=== PATIENT | male | born 1950 | race Caucasian/White ===

== ENCOUNTER 2017-09-27 09:55 | Outpatient (CLI) | payer MEDICARE, OTHER | END 2017-09-27 10:35 | disposition home or self-care (01) | LOC: SLEEP 09:55 → EDSEX 10:00 → SLEEP 10:35 | PROVIDERS: ATTEND Nurse Practitioner Family | DX: G47.10 Hypersomnia, unspecified (principal) ==

== ENCOUNTER 2019-03-17 05:55 | Outpatient (CLI) | payer OTHER, MEDICARE ==
[~2019-03-17] VITALS: Ht 170.2 cm; Wt 70.8 kg
[2019-03-17] MEDS ORDERED: bp med PO (11:09)
[2019-03-17] MEDS ORDERED: LEVO88TA54 PO (11:09)
== END 2019-03-17 11:10 | disposition home or self-care (01) ==
LOC: PREOP 05:55
PROVIDERS: ATTEND Surgery
DX: Z01.818 Encounter for other preprocedural examination (principal)

== ENCOUNTER 2019-03-19 10:17 | Day surgery (SDC) | payer OTHER, MEDICARE ==
[~2019-03-19] VITALS: Ht 170.2 cm; Wt 70.8 kg
[~2019-03-19 10:17] MED LIST: LEVO88TA54 PO; bp med PO
[2019-03-19] MEDS ORDERED: NS IV 500 ML 500 ML ONE (10:26)
[2019-03-19 10:30] VITALS: BP 151/97
--- OUTSIDE RECORDS SUMMARY | 2019-03-19 10:34 | XMS REPORT | Continuity of Care Document ---
Author Organization Unknown Address Unknown Allergies Active Description Code Type Severity Reaction Onset Reported/Identified Relationship to Patient Clinical Status Yes No Known Drug Allergies [id number] Drug Allergy Unknown N/A 03/17/2019 Medications There is no data. Problems Date Dx Coded Attending Type Code Diagnosis Diagnosed By 05/19/2014 GISELLE GERARD APRN 692.9 CONTACT DERMATITIS AND OTHER ECZEMA UNSPECIFIED CAUSE 05/19/2014 GISELLE GERARD APRN 698.9 UNSPECIFIED PRURITIC DISORDER 05/19/2014 KRISSY REBOLLEDO DO 692.9 CONTACT DERMATITIS AND OTHER ECZEMA UNSPECIFIED CAUSE 05/19/2014 KRISSY REBOLLEDO DO 698.9 UNSPECIFIED PRURITIC DISORDER 06/01/2014 KRISSY REBOLLEDO DO 692.2 CONTACT DERMATITIS AND OTHER ECZEMA DUE TO SOLVENTS 09/27/2017 MICHAELA ROSADO [facility] Ot G47.10 HYPERSOMNIA, UNSPECIFIED 09/28/2017 MICHAELA ROSADO Ot G47.10 HYPERSOMNIA, UNSPECIFIED 10/22/2018 Medhat Trimble Reason R42 Dizziness and giddiness Procedures Code [place] [address] THERAPUTIC INJ SQ/IM 06/01/2014 [id number] SOLUMEDROL INJ 06/01/2014 Results There is no data. Encounters ACCT No. Visit Date/Time Discharge Status Pt. Type Provider Facility Loc./Unit Complaint [id number] 06/01/2014 17:21:00 06/01/2014 23:59:59 CLS Outpatient KRISSY REBOLLEDO DO [id number] 05/19/2014 11:07:00 05/19/2014 23:59:59 CLS Outpatient GISELLE GERARD APRN [id number] 03/17/2019 05:55:00 03/17/2019 11:10:00 DIS Outpatient LYNDSEY STREETER MD [facility] PREOP COLONOSCOPY [id number] 09/27/2017 09:55:00 09/27/2017 10:35:00 DIS Outpatient MICHAELA ROSADO [facility] SLEEP OBSTRUCTIVE SLEEP APNEA [id number] 03/19/2019 11:45:00 PEN Preadmit LYNDSEY STREETER MD [facility] ENDO SCREENING/HX POLYPS [id number] 10/21/2018 06:53:00 10/21/2018 23:59:00 DIS Outpatient Medhat Trimble [facility] Dizziness and giddiness/
[2019-03-19] MEDS ORDERED: NS IV 500 ML 500 ML IV PRN (10:36)
--- NOTE | 2019-03-19 10:42 | Progress Note-Pre Operative ---
Pre-Operative Progress Note H&P Reviewed The H&P was reviewed, patient examined and no changes noted. Date Seen by Provider: Mar 19, 2019 Time Seen by Provider: 10:00 Date H&P Reviewed: Mar 19, 2019 Time H&P Reviewed: 10:00 Pre-Operative Diagnosis: hx colon polyp LYNDSEY STREETER MD Mar 19, 2019 10:42
--- NOTE | 2019-03-19 10:44 | Discharge Inst-Surgical ---
D/C Lap Instructions-FERDINAND Follow Up Activity as tolerated High Fiber Diet 25g or more per day Avoid Alcohol, Caffeine, Spicy [place] and Acid foods. Drink 64 fluid oz or more of fluids per day. Symptoms to Report: Fever over 101 degree F, Nausea/Vomiting If any problems/questions: Contact your physician or go to Emergency Room LYNDSEY STREETER MD Mar 19, 2019 10:44
[2019-03-19] MEDS ORDERED: fentaNYL INJECTION 100 MCG/2 ML AMP IVP ONE (10:45)
[2019-03-19] MEDS ORDERED: LIDOCAINE JELLY 2% 6 ML SYRINGE MM PRN (10:45)
[2019-03-19] MEDS ORDERED: ONDANSETRON 4 MG/2 ML (SDV) Z0FRAN IV PRN (10:45)
[2019-03-19] MEDS ORDERED: ACETAMINOPHEN 325 MG TABLET PO PRN (10:45)
[2019-03-19] MEDS ORDERED: morphine INJ 10 MG/ML 1ML (SYR OR VIAL) IV PRN (10:45)
[2019-03-19] MEDS ORDERED: HYDROcodone/APAP 5 MG/325 MG (LORTAB) TAB PO PRN (10:45)
[2019-03-19] MEDS ORDERED: MIDAZOLAM 2 MG/2 ML (VERSED) VIAL IVP ONE (10:45)
[2019-03-19] MEDS ORDERED: HYDR25TA4 PO (10:59)
[2019-03-19] MEDS ORDERED: SIMV40TA4 PO (10:59)
[2019-03-19] MEDS ORDERED: LISI40TA PO (10:59)
[2019-03-19] MEDS ORDERED: NIFE100P MC (10:59)
--- NOTE | 2019-03-19 12:05 | Conscious Sedation/ASA ---
Conscious Sedation Pre-Proced Time 10:00 ASA Score 2 For ASA 3 and 4: Consider anesthesia and medical clearance. Also, for patients with a history of failed moderate sedation consider anesthesia. Airway Lungs Heart ASA score ASA 1: a normal healthy patient ASA 2: a patient with a mild systemic disease (mid diabetes, controlled hypertension, obesity ASA 3: a patient with a severe systemic disease that limits activity (angina , COPD, prior Myocardial infarction) ASA 4: a patient with an incapacitating disease that is a constant threat to life (CHF, renal failure) ASA 5: a moribund patient not expected to survive 24 hrs. (ruptured aneurysm) ASA 6: a declared brain- patient whose organs are being harvested. For emergent operations, add the letter E after the classification Mallampati Classification Grade 2 Sedation Plan Analgesia, Amnesia, Plan communicated to team members, Discussed options with patient/fam, Discussed risks with patient/fam The patient is an appropriate candidate to undergo the planned procedure, sedation, and anesthesia. The patient immediately re-assessed prior to indication. LYNDSEY STREETER MD Mar 19, 2019 12:05
[2019-03-19] MEDS ORDERED: fentaNYL INJECTION 100 MCG/2 ML AMP ONE ×2 (12:48→12:49)
[2019-03-19] MEDS ORDERED: LIDOCAINE JELLY 2% 6 ML SYRINGE ONE (12:48)
[2019-03-19] MEDS ORDERED: MIDAZOLAM 2 MG/2 ML (VERSED) VIAL ONE ×3 (12:49)
[2019-03-19 14:10] VITALS: BP 112/71
--- NOTE | 2019-03-19 14:31 | Progress Note-Post Operative ---
Post-Operative Progess Note Surgeon (s)/Qa Architect (s) Surgeon LYNDSEY STREETER MD Qa Architect: none Pre-Operative Diagnosis hx colon polyp Post-Operative Diagnosis mild chronic stage 2 ext and int hemorrhoids, mild/early sigmoid diverticulosis. Procedure & Operative Findings Date of Procedure 03/19/19 Procedure Performed/Findings colonoscopy Anesthesia Type cs Estimated Blood Loss Estimated blood loss (mL): minimal Specimens/Packing Specimens Removed none LYNDSEY STREETER MD Mar 19, 2019 14:31
[2019-03-19 14:40] VITALS: BP 132/82
[2019-03-19 14:50] VITALS: BP 132/82
--- NOTE | 2019-03-19 21:13 | OPERATIVE REPORT ---
DATE OF SERVICE: 03/19/2019 ATTENDING IN SCHOOL SUSPENSION AIDE: Medhat Trimble APRN PREOPERATIVE DIAGNOSIS: History of colon polyp. POSTOPERATIVE DIAGNOSES: Mild chronic stage II external and internal hemorrhoids, very mild or early sigmoid diverticulosis. PROCEDURE: Colonoscopy. SURGEON: Lyndsey Streeter MD ANESTHESIA: Conscious sedation. ESTIMATED BLOOD LOSS: Minimal. FINDINGS: Mild chronic stage I external and internal hemorrhoids. Prostate gland was palpable and appeared normal. There were a few isolated small early sigmoid diverticulosis. Remainder of the colon was normal. There were no polyps or any neoplasms identified. DISPOSITION: The patient tolerated the procedure well. INDICATIONS: The patient is a 68-year-old male in need of a followup colonoscopy. His last colonoscopy was approximately 8 years ago and he states that he did have polyps at that time. He reports that the previous colonoscopy before that when he also had polyps. He believes all of these were benign. He states for the most part he is doing well, does not report any diarrhea nor constipation as well as no red blood per rectum nor any dark tarry stools. He also does not report any family history of colon cancer. DESCRIPTION OF PROCEDURE: The patient was brought to the endoscopy suite, laid in left lateral decubitus position. After adequate IV pain and sedative medications and conscious sedation anesthesia, a digital rectal examination was performed. Mild chronic stage II external and internal hemorrhoids were identified, which were not actually edematous nor inflamed and no bleeding. Normal sphincter tone was felt and no palpable masses. Prostate gland was palpable and appeared normal. The endoscope was then intubated into anus and rectum gently insufflated. The endoscope was then advanced to the valves of Weiss of the rectum with no polyps or any neoplasms identified. The endoscope was then advanced through the sigmoid colon where a few isolated very early or mild diverticula identified. There were no mucosal inflammatory changes to indicate any active diverticulitis. The endoscope was then advanced to remainder of the descending, transverse and ascending colon to the cecum. These segments were normal. There were no polyps or any neoplasms identified throughout the colon or rectum. The endoscope was then slowly withdrawn while taking a second look and suctioning of residual air with no additional findings. The patient tolerated the procedure well. We will recommend medical management with a high fiber diet with at least 30 grams of fiber per day as well as significant amounts of water daily to promote soft stools on a daily basis. He does not have any family history of colon cancer and no polyps were identified, and he may wait 10 years for his next colonoscopy. Job ID: [id number] DocumentID: [id number] Dictated Date: 03/19/2019 13:40:17 Architect Marine Date: 03/19/2019 21:12:38 Dictated By: LYNDSEY STREETER MD
== END 2019-03-19 14:50 | disposition home or self-care (01) ==
LOC: ENDO 10:17
PROVIDERS: ATTEND Surgery
DX: Z12.11 Encounter for screening for malignant neoplasm of colon (principal); K57.30 Diverticulosis of large intestine without perforation or abscess without bleeding; K64.1 Second degree hemorrhoids; Z86.010 Personal history of colon polyps; I10 Essential (primary) hypertension; E78.00 Pure hypercholesterolemia, unspecified; E03.9 Hypothyroidism, unspecified; Z79.899 Other long term (current) drug therapy; Z87.891 Personal history of nicotine dependence

== ENCOUNTER 2022-09-05 03:09 | Inpatient (IN) | payer OTHER, MEDICARE ==
[~2022-09-05] VITALS: Ht 182.9 cm; Wt 58.6 kg
[~2022-09-05 03:09] MED LIST changes: +HYDR25TA4 PO; +LISI40TA9 PO; +NIFE100P MC; +SIMV40TA25 PO
[2022-09-05] MEDS ORDERED: TETANUS,DIPTH,PERTUSS P/F (BOOSTRIX) 0.5 ML VIAL IM ONE (03:30)
[2022-09-05] MEDS ORDERED: LACTATED RINGERS 1,000 ML IV ONE ×3 (03:30→07:00)
[2022-09-05 03:46] LABS: CHLORIDE 104 MMOL/L (98-107); POTASSIUM 3.9 MMOL/L (3.6-5.0); SODIUM 139 MMOL/L (135-145)
[2022-09-05 03:47] LABS: ALBUMIN 4.2 GM/DL (3.2-4.5)
[2022-09-05 03:48] LABS: CALCIUM 9.1 MG/DL (8.5-10.1)
[2022-09-05 03:49] LABS: AMMONIA 15 UMOL/L (11-32); AMYLASE 46 U/L (25-125); GLUCOSE 134 MG/DL (70-105); TOTAL PROTEIN 6.3 GM/DL (6.4-8.2)
[2022-09-05 03:50] LABS: CARBON DIOXIDE 20 MMOL/L (21-32)
[2022-09-05 03:51] LABS: BILIRUBIN,TOTAL 0.6 MG/DL (0.1-1.0)
[2022-09-05 03:53] LABS: ALKALINE PHOSPHATASE 36 U/L (40-136); CREATININE SERUM 1.74 MG/DL (0.60-1.30); GFR ESTIMATED 42
[2022-09-05 03:54] LABS: BUN/CREATININE RATIO 24
[2022-09-05 03:56] LABS: ALANINE AMINOTRANSFERASE < 6 U/L (0-55); MAGNESIUM 2.2 MG/DL (1.6-2.4); SALICYLATE < 5.0 MG/DL (5.0-20.0)
[2022-09-05 03:57] LABS: CREATINE KINASE 158 U/L (30-200); LIPASE 26 U/L (8-78)
[2022-09-05 04:02] LABS: ACETAMINOPHEN < 10 UG/ML (10-30)
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
[2022-09-05 04:05] LABS: CREATINE KINASE MB 5.3 NG/ML (<6.6)
[2022-09-05 04:18] LABS: TSH (THYROID ANALYZER) 1.62 UIU/ML (0.35-4.94)
[2022-09-05 04:58] LABS: BASOPHILS % (AUTO) 0 % (0-10); EOSINOPHILS # (AUTO) 0.1 10^3/uL (0.0-0.3); EOSINOPHILS % (AUTO) 1 % (0-10); HEMATOCRIT 38 % (40-54); HEMOGLOBIN 12.8 g/dL (13.3-17.7); LYMPHOCYTES # (AUTO) 0.8 10^3/uL (1.0-4.0); LYMPHOCYTES % (AUTO) 7 % (12-44); MEAN CORPUSCULAR HEMOGLOBIN 32 pg (25-34); MEAN CORPUSCULAR HGB CONC 34 g/dL (32-36); MEAN CORPUSCULAR VOLUME 93 fL (80-99); MEAN PLATELET VOLUME 10.7 fL (9.0-12.2); MONOCYTES # (AUTO) 0.6 10^3/uL (0.0-1.0); MONOCYTES % (AUTO) 6 % (0-12); NEUTROPHILS # (AUTO) 8.6 10^3/uL (1.8-7.8); NEUTROPHILS % (AUTO) 85 % (42-75); PLATELET COUNT 155 10^3/uL (130-400); WHITE BLOOD COUNT 10.1 10^3/uL (4.3-11.0)
[2022-09-05 04:59] LABS: BILIRUBIN,URINE NEGATIVE (NEGATIVE); CLARITY,URINE CLEAR; COLOR,URINE YELLOW; GLUCOSE, URINE (UA) NEGATIVE (NEGATIVE); KETONES,URINE 1+ (NEGATIVE); LEUKOCYTE ESTERASE ,URINE NEGATIVE (NEGATIVE); NITRITE,URINE NEGATIVE (NEGATIVE); PH,URINE 5.5 (5-9); PROTEIN,URINE NEGATIVE (NEGATIVE)
[2022-09-05 05:13] LABS: INR 1.1 (0.8-1.4); PROTHROMBIN TIME PATIENT 15.1 SEC (12.2-14.7)
[2022-09-05 05:17] LABS: AMPHETAMINE SCREEN, URINE NEGATIVE (NEGATIVE); BARBITURATE SCREEN URINE NEGATIVE (NEGATIVE); BENZODIAZEPINES SCREEN URINE NEGATIVE (NEGATIVE); CANNABINOID SCREEN, URINE NEGATIVE (NEGATIVE); COCAINE SCREEN URINE NEGATIVE (NEGATIVE); METHADONE STAT NEGATIVE (NEGATIVE); OPIATE SCREEN URINE NEGATIVE (NEGATIVE); OXYCODONE STAT NEGATIVE (NEGATIVE); PROPOXYPHENE STAT NEGATIVE (NEGATIVE); TRICYCLIC ANTIDEPRESSANTS SCRE NEGATIVE (NEGATIVE)
[2022-09-05 05:24] LABS: BACTERIA,URINE TRACE /HPF; WBC,URINE 0-2 /HPF
[2022-09-05 05:25] LABS: URIC ACID CRYSTALS,URINE MODERATE /LPF
[2022-09-05 05:30] LABS: ERYTHROCYTE SEDIMENTATION RATE 3 MM/HR (0-30)
[2022-09-05 05:58] LABS: NEUTROPHILS % (MANUAL) 91 %
[2022-09-05 05:59] LABS: EOSINOPHILS % (MANUAL) 1 %; LYMPHOCYTES % (MANUAL) 3 %; MONOCYTES % (MANUAL) 5 %; RBC MORPH NORMAL
[2022-09-05] MEDS ORDERED: CEFEPIME INJECTION 1,000 MG in NS (IVPB) 50 ML IV ONE (06:00)
--- NOTE | 2022-09-05 06:48 | Diagnostic Imaging Report ---
Procedure: CT chest, abdomen, and pelvis without contrast. Technique: Multiple contiguous axial images were obtained through the chest, abdomen, and pelvis without the use of intravenous contrast. Auto Exposure Controls were utilized during the CT exam to meet ALARA standards for radiation dose reduction. Date: September 05, 2022. Indication: 71-year-old male, found down. Chest and abdominal pain. Comparison: None. Findings: There is mild dependent atelectasis in the right lower lobe and left lower lobe. There is no additional focal airspace consolidation. There is no identified pulmonary nodule or lung mass. There is no pneumothorax. There is no pleural effusion. The central airways are patent. The heart is unremarkable in size. There is no pericardial effusion. There is no identified abnormally enlarged mediastinal or axillary lymph node which meets CT size criteria for adenopathy. The liver is unremarkable in size and contour. The gallbladder is unremarkable. There is no identified biliary duct dilation. Very limited noncontrast assessment of the pancreatic parenchyma is without identified abnormality. The spleen is normal in size. The adrenal glands are unremarkable. There is a hyperdense right renal lesion on axial image 148 measuring 9 mm in size which is not able to be definitively characterized. There are areas of right renal scarring particularly at the level of the upper pole. The urinary collecting systems are not distended. There is no identified renal or ureteral stone. Urinary bladder is unremarkable. The intestinal tract is not distended. There is a moderate volume colonic stool. The appendix is not well seen. There is no identified secondary findings to specifically suggest acute appendicitis. There is no identified free intraperitoneal air. There is no identified focal drainable fluid collection. There is no sizable volume free fluid in the abdomen or pelvis. There are atherosclerotic calcifications. There is no identified abnormally enlarged lymph node in the abdomen or pelvis meeting CT size criteria for adenopathy. There are degenerative changes of the spine. There is no identified acute bony abnormality. Impression: 1. No identified acute abnormality at the level of the chest, abdomen, or pelvis. 2. Incidental findings as above. Agree with the provided preliminary impression Dictated by: Dictated on workstation # [id number]
--- NOTE | 2022-09-05 06:58 | Diagnostic Imaging Report ---
EXAMINATION: Right humerus radiographs, 2 views. COMPARISON: None. HISTORY: 71-year-old male, right humerus pain. FINDINGS: There are punctate areas of high attenuation in the soft tissues anterior and lateral at the level of the elbow which could relate to foreign bodies. Recommend correlation. There is no identified acute fracture. There are acromioclavicular degenerative changes with 4 mm undersurface osteophytes. IMPRESSION: 1. No identified acute bony abnormality at the level of the right humerus. 2. Potential foreign bodies laterally and anteriorly near the level of the elbow joint. Recommend correlation. Dictated by: Dictated on workstation # [id number]
--- NOTE | 2022-09-05 06:58 | Diagnostic Imaging Report ---
EXAMINATION: Right forearm radiographs, 2 views. COMPARISON: None. HISTORY: 71-year-old male, right forearm pain. FINDINGS: There is no identified acute fracture. There are areas of high attenuation projecting within the lateral and anterior soft tissues near the level of the elbow joint which may reflect foreign bodies. These measure up to approximately 1.2 mm in size. Recommend correlation. There is no identified abnormal bone alignment. IMPRESSION: 1. Potential small radiopaque foreign bodies within the lateral and anterior soft tissues at the level of the elbow. Recommend correlation. 2. No identified acute fracture or other acute osseous abnormality. Dictated by: Dictated on workstation # [id number]
--- NOTE | 2022-09-05 07:01 | Diagnostic Imaging Report ---
EXAMINATION: Chest radiograph, portable AP view. DATE: 09/05/2022 5:01 AM INDICATION: 71-year-old male, found down. Chest pain. COMPARISON: None. FINDINGS: Heart size and mediastinal contours are unremarkable. There is no identified pneumothorax. There is no large pleural effusion. There is material external to the patient which does limit the exam. There is no identified focal airspace consolidation. IMPRESSION: 1. No identified acute cardiopulmonary abnormality. Dictated by: Dictated on workstation # [id number]
--- NOTE | 2022-09-05 07:02 | Diagnostic Imaging Report ---
EXAMINATION: Pelvis, single view. COMPARISON: None. HISTORY: 71-year-old male, found down. Pelvic pain. FINDINGS: The pubic symphysis and sacroiliac joints are normally aligned. The hips are not obviously dislocated. There is material overlying the patient which does limit the exam. There is no identified acute fracture. IMPRESSION: 1. No identified acute bony abnormality of the pelvis. Dictated by: Dictated on workstation # [id number]
[2022-09-05] MEDS ORDERED: LIDOCAINE 1% INJ 20 ML VIAL INJ ONE (07:30)
--- NOTE | 2022-09-05 08:28 | Diagnostic Imaging Report ---
PROCEDURE: CT head, face, and cervical spine without contrast. TECHNIQUE: Multiple contiguous axial images were obtained through the head, neck, and facial bones without the use of intravenous contrast. Sagittal and coronal reformations through the cervical spine and facial bones were also performed. Auto Exposure Controls were utilized during the CT exam to meet ALARA standards for radiation dose reduction. INDICATION: Facial abrasions and soft tissue injuries, found down. This is compared with a head CT dated 10/21/2018. CT Head: There is increased magnitude of cerebral cortical atrophy. There is no hemorrhage and there are no abnormal or acute extra-axial fluid collections. There is no pneumocephalus. No calvarial fracture deformity. The mastoid air cells and middle ear cavities clear. There was no evidence for an elevation of the intracerebral pressures and no focal nor generalized cerebral edema. Facial bones: There are acute bilateral nasal bone fractures extending into the bridge. Rightward nasal septal deviation and spurring chronic. Pterygoid plates intact. Zygomatic arch is intact. There is periorbital, perinasal and preseptal soft tissue swelling. No post septal or retrobulbar orbital hematoma. The bony orbital mclean appeared intact. Maxillary sinus mclean intact. There are degenerative changes to the right greater than left temporomandibular joints with no mandibular fracture or dislocation evident. Anterior and posterior mclean of the frontal sinus is intact. Cervical spine: Cervical vertebral statures normal the alignment within normal limits there degenerative changes however no cervical fracture or traumatic malalignment. The central skull base intact. No paraspinal hematoma, mass or fluid collection. There is carotid atherosclerotic vascular calcifications. Hyoid and structures of the larynx as well as thyroid cartilage showed no traumatic deformity. IMPRESSION: CT Head: Progressive atrophy but no hemorrhage or acute intracerebral pathology. Facial bones: Bilateral acute nasal bone fractures and facial swelling. No hemosinus. No additional fracture. Cervical spine: No cervical spinal fracture or traumatic malalignment. Agree with preliminary. Dictated by: Dictated on workstation # [id number]
[2022-09-05] MEDS ORDERED: OLANZapine 5 MG ODT (ZyPREXA ZYDIS) ONE (08:38)
[2022-09-05] MEDS ORDERED: ZIPRASIDONE 20 MG INJ (GEODON) VIAL IM ONE ×3 (08:40→23:51)
[2022-09-05] MEDS ORDERED: WATER (STERILE) FOR INJECTION 10 ML ONE (08:40)
[2022-09-05] MEDS: WATER (STERILE) FOR INJ 10 ML BTL INJ SCH ×2 (08:45→23:58)
[2022-09-05] MEDS ORDERED: ONDANSETRON 4 MG/2 ML (SDV) Z0FRAN IV PRN (09:30)
[2022-09-05] MEDS ORDERED: NS IV 500 ML 500 ML IV PRN (09:30)
[2022-09-05] MEDS ORDERED: diphenhydrAMINE 50 MG/ML INJ (BENADRYL) IVP PRN (09:30)
[2022-09-05] MEDS ORDERED: ONDANSETRON 4 MG (ZOFRAN) ORAL DISSOLVE TAB PO PRN (09:30)
[2022-09-05] MEDS ORDERED: ANTACID SUSP 30 ML UDC (MYLANTA) PO PRN (09:30)
[2022-09-05] MEDS ORDERED: diphenhydrAMINE 25 MG TAB (BENADRYL) PO PRN (09:30)
[2022-09-05] MEDS ORDERED: BISACODYL 10 MG SUPP (DULCOLAX) PR PRN (09:30)
[2022-09-05] MEDS ORDERED: CALCIUM CARBONATE 500 MG (TUMS) TAB.CHEW PO PRN (09:30)
[2022-09-05] MEDS ORDERED: LACTULOSE SYRUP 10GM/15ML (ENULOSE) 30ML UDC PO PRN (09:30)
[2022-09-05] MEDS ORDERED: polyethylene glycoL POWDER 17 GM (MIRALAX) PACK PO PRN ×2 (09:30→15:45)
[2022-09-05] MEDS ORDERED: MILK OF MAGNESIA 400 MG/5 ML 30 ML UDC PO PRN (09:30)
[2022-09-05 09:50] VITALS: BP 148/84
[2022-09-05] MEDS: NS IV 1000 ML 1,000 ML IV SCH ×2 (11:04→20:02)
[2022-09-05 11:38] VITALS: BP 172/99
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
[2022-09-05] MEDS: ACETAMINOPHEN 325 MG TABLET PO PRN (12:11)
--- NOTE | 2022-09-05 13:49 | Occ Therapy Progress Note ---
Therapy Progress Note OT orders received and chart reviewed. OT attempted visit with pt, but pt sleeping. OT talked with pt's brother, who indicates pt lives alone, but has a family member check on him 2-4 times a day and assistance with medication management. He is able to dress, toilet, and bathe himself at PLOF. Pt's brother requests to let pt rest today and attempt again tomorrow. OT will attempt evaluation again at next available time per family request. 1, visit SLIM GALLEGOS OT Sep 05, 2022 13:49
[2022-09-05] MEDS ORDERED: HYDR25TA4 PO (14:01)
[2022-09-05] MEDS ORDERED: LISI40TA9 PO (14:01)
[2022-09-05] MEDS ORDERED: POLY17PO6 PO (14:01)
[2022-09-05] MEDS ORDERED: NFD60TCR PO (14:01)
[2022-09-05] MEDS ORDERED: PSYL3.4P5 PO (14:01)
[2022-09-05] MEDS ORDERED: SIMV40TA25 PO (14:01)
[2022-09-05] MEDS ORDERED: RISP0.5T65 PO (14:01)
[2022-09-05] MEDS ORDERED: LEVO75TA6 PO (14:01)
[2022-09-05] MEDS ORDERED: CARB1TAB41 PO (14:01)
[2022-09-05 15:05] VITALS: BP 163/97
[2022-09-05] MEDS: hydrALAZINE (APESOLINE) 20 MG/ML VIAL IV PRN (15:44)
[2022-09-05] MEDS ORDERED: PSYLLIUM POWDER (METAMUCIL) 5.8 GM PACKET PO PRN (15:45)
[2022-09-05] MEDS: CARBIDOPA LEVO PO SCH ×3 (16:02→20:07)
[2022-09-05] MEDS ORDERED: ZIPRASIDONE 20 MG INJ (GEODON) VIAL IM NR (16:15)
[2022-09-05] MEDS ORDERED: WATER (STERILE) FOR INJ 10 ML BTL INJ NR (16:15)
[2022-09-05] MEDS ORDERED: CARBIDOPA PO SCH (17:00)
[2022-09-05] MEDS ORDERED: LEVODOPA PO SCH (17:00)
[2022-09-05] MEDS ORDERED: [UNRECOGNIZED DRUG - OTHER] PO SCH (17:00)
--- NOTE | 2022-09-05 18:54 | History & Physical-Hospitalist ---
History of Present Illness HPI/Chief Complaint Ranjith Swanson is a 71 year old male with PMH Parkinson's disease with dementia and psychosis, HTN, HLD, hypothyroidism, who presented after being found down. He is a poor historian due to his dementia. His brother is present and assists with the history He was found down on a sidewalk a couple miles from his home. He has several wounds on his face. He does not remember falling. He lives by himself. His sister helps with his bills and his medications. He has had several falls recently. He was also started on antipsychotics due to delusions, hallucinations, and agitation. He follows with a neurologist in [place], [place]. His PCP is through [facility] [place]. He denies chest pain, shortness of breath, and abdominal pain. Source: patient, family Exam Limitations: clinical condition Date Seen 09/05/22 Time Seen by a Provider: 11:00 Attending Physician No,Local Physician PCP Admitting Physician: Heike Ramirez MD Attending Physician: Heike Ramirez MD Referring Physician Date of Admission Sep 05, 2022 at 08:17 Home Medications & Allergies Home Medications Reviewed patient Home Medication Reconciliation performed by pharmacy medication reconciliations oil and gas field technician and/or nursing. Patients Allergies have been reviewed. Allergies Allergies Coded Allergies No Known Drug Allergies (Pmaigokobk63/11/22) Past Xmhukfp-Vayras-Gunbii Hx Patient Social History Tobacco Use?: No Tobacco type used: Cigarettes Smoking Status: Former Smoker Smokeless Tobacco Frequency: Never a User Use of E-Cig and/or Vaping Jacques: Never a User Substance use?: No Additional substance use comme: DENIES Alcohol Use?: No Additional alcohol type: DENIES Pt feels they are or have been: No Immunizations Up To Date Date of Influenza Vaccine: Aug 30, 2022 Tetanus Booster (TDap): Less Than 5 Years Hepatitis A: No Hepatitis B: No Seasonal Allergies Seasonal Allergies: Yes Current Status Advance Directives: No Communicates: Verbally Primary Language: Jordanian Preferred Spoken Language: Jordanian Is interpretation needed?: No Sensory deficits: Vision impairment Implanted or Applied Medical D: None Past Medical History Surgeries: Tonsillectomy High Cholesterol, Hypertension Parkinson's Disease Diverticulosis, Polyps Hypothyroidsim Loss of Vision: Denies Hearing Impairment: Denies Blood Disorders: No Family Medical History Heart Disease ([place] in father), Diabetes (father), Other Conditions/Hx (hypothyroidism in several relatives) SOCIAL HISTORY: -SMOKED 1 PPD X 5 YEARS, QUIT 1988 -DENIES HISTORY OF DRUG USE -HISTORY OF ETOH USE--UNKNOWN AMOUNT OR HOW OFTEN COLONOSCOPY 03/19/[address] STREETER: DONE FOR HISTORY OF POLYPS NO POLYPS OR NEOPLASMS MILD DIVERTICULAR DISEASE. Review of Systems Constitutional: weakness EENTM: no symptoms reported Respiratory: no symptoms reported Cardiovascular: no symptoms reported Gastrointestinal: no symptoms reported Physical Exam Physical Exam Vital Signs Vital Signs - First Documented 09/05/22 03:13 Temp 36.4 Pulse 91 Resp 16 B/P (MAP) 144/80 (101) Pulse Ox 98 O2 Delivery Room Air Capillary Refill : Less Than 3 Seconds Height, Weight, BMI Height: 5'7.00" Weight: 156lbs. 0.0oz. [id number]; 17.90 BMI Method: General Appearance: No Apparent Distress, Chronically ill, Thin HEENT: PERRL/EOMI, Pharynx Normal Neck: Normal Inspection, Supple Respiratory: Lungs Clear, No Respiratory Distress Cardiovascular: Regular Rate, Rhythm, No Murmur Gastrointestinal: Normal Bowel Sounds, Non Tender, Soft Extremity: Normal Inspection, No Pedal Edema Neurologic/Psychiatric: Alert, Disoriented, Other (flat affect) Skin: Other (facial lacerations) Results Results/Procedures Labs Laboratory Tests 09/05/22 03:27 09/05/22 04:51 Patient resulted labs reviewed. Imaging: Reviewed Imaging Report Assessment/Plan Admission Diagnosis Ground level fall Admission Status: Observation Assessment and Plan Ground level fall Nasal fracture Facial lacerations Imaging revealed nasal fracture Trauma surgery consulted PT/OT SW consulted, may need placement BOB vs CKD Lactic acidosis Unknown baseline IV fluids Monitor Parkinson's disease Dementia Psychosis HTN HLD Hypothyroidism Continue home meds Severe protein calorie malnutrition Ensure DVT prophylaxis: Lovenox Diagnosis/Problems Diagnosis/Problems (1) Fall from ground level Status: Acute (2) Nasal fracture Status: Acute Qualifiers: Encounter type: initial encounter Fracture type: closed Qualified Codes: S02.2XXA - Fracture of nasal bones, initial encounter for closed fracture (3) Face lacerations Status: Acute Qualifiers: Encounter type: initial encounter Qualified Codes: S01.81XA - Laceration without foreign body of other part of head, initial encounter (4) BOB (acute kidney injury) Status: Acute (5) Lactic acidosis Status: Acute (6) Parkinson disease Status: Chronic (7) Dementia in Parkinson's disease Status: Chronic (8) 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
[2022-09-05 19:57] VITALS: BP 170/74
[2022-09-05] MEDS: AtorvaSTATin TABLET 10 MG TABLET PO SCH (20:06)
[2022-09-05] MEDS: risperiDONE 0.5 MG (RisperDAL) TABLET PO SCH (20:07)
[2022-09-05] MEDS: DOCUSATE SODIUM 100 MG (COLACE) CAP PO SCH (20:09)
[2022-09-05 20:10] VITALS: BP 147/76
[2022-09-05] MEDS: SENNOSIDES 8.6 MG (SENOKOT) TAB PO SCH (20:10)
[2022-09-05] MEDS ORDERED: NON-FORMULARY MEDICATION 1 EA EA (Simvastatin 20 MG) PO SCH (21:00)
[2022-09-05] MEDS: ENOXAPARIN INJECTION 30 MG/0.3 ML SYR SC SCH (21:44)
[2022-09-05] MEDS: ZIPRASIDONE 20 MG INJ (GEODON) VIAL IM PRN (23:58)
[2022-09-06] MEDS ORDERED: WATER (STERILE) FOR INJ 10 ML BTL INJ SCH
[2022-09-06] MEDS: ZIPRASIDONE 20 MG INJ (GEODON) VIAL IM PRN ×2 (02:20→09:46)
[2022-09-06] MEDS: WATER (STERILE) FOR INJ 10 ML BTL INJ SCH ×2 (02:20→09:48)
[2022-09-06 03:05] VITALS: BP 160/80
[2022-09-06] MEDS ORDERED: HALOPERIDOL 5 MG/ML (HALDOL) VIAL IM PRN (03:45)
[2022-09-06] MEDS: LORazepam INJ 2 MG/ML (ATIVAN) VIAL IVP PRN ×5 (03:51→21:30)
[2022-09-06] MEDS: NS IV 1000 ML 1,000 ML IV SCH (05:31)
[2022-09-06 06:20] LABS: CALCIUM 9.2 MG/DL (8.5-10.1); CREATININE SERUM 0.89 MG/DL (0.60-1.30); MAGNESIUM 1.7 MG/DL (1.6-2.4); POTASSIUM 3.4 MMOL/L (3.6-5.0)
[2022-09-06] MEDS: POTASSIUM CL 10MEQ/50ML IVPB 50 ML IV SCH ×3 (06:41→09:51)
[2022-09-06] MEDS: MAGNESIUM 1 GM/100 ML IVPB 100 ML IV SCH ×3 (06:42→08:00)
[2022-09-06] MEDS: KCL 20 MEQ TAB (K-DUR) PO SCH (06:42)
[2022-09-06 07:03] VITALS: BP 164/89
[2022-09-06] MEDS ORDERED: NIFEDIPINE 120 MG PO SCH (09:00)
--- NOTE | 2022-09-06 09:37 | Occ Therapy Progress Note ---
Therapy Progress Note Pt on hold this date per RN due to agitation, combativeness, and confusion requiring 1:1 live sitter. OT will attempt evaluation/tx again tomorrow. SLIM GALLEGOS OT Sep 06, 2022 09:36
--- NOTE | 2022-09-06 09:46 | Physical Therapy Progress Note ---
Therapy Progress Note Pt on hold this date per RN due to agitation, combativeness, and confusion requiring 1:1 live sitter. PT will attempt tx again tomorrow. MAKAYLA BRYANT PTA Sep 06, 2022 09:46
[2022-09-06] MEDS: hydrALAZINE (APESOLINE) 20 MG/ML VIAL IV PRN (09:47)
[2022-09-06] MEDS: risperiDONE 0.5 MG (RisperDAL) TABLET PO SCH ×2 (09:50→21:00)
[2022-09-06] MEDS: NIFEdipine ER 30 MG (PROCARDIA XL) TAB PO SCH (09:50)
[2022-09-06] MEDS: CARBIDOPA LEVO PO SCH (09:50)
[2022-09-06] MEDS: DOCUSATE SODIUM 100 MG (COLACE) CAP PO SCH ×2 (09:50→21:00)
[2022-09-06] MEDS: LEVOTHYROXINE 75 MCG (LEVOTHROID) TABLET PO SCH (09:51)
[2022-09-06] MEDS: lisINopril 40 MG (PRINIVIL) TABLET PO SCH (09:52)
[2022-09-06] MEDS: SENNOSIDES 8.6 MG (SENOKOT) TAB PO SCH ×2 (09:52→21:00)
[2022-09-06] MEDS: D5 1/2 NS W/KCL 20 MEQ/L 1,000 ML IV SCH (10:52)
[2022-09-06 11:34] VITALS: BP 162/81
[2022-09-06] MEDS: SINEMET CR 50/200 (CARBIDOPA/LEVODOPA SA) TAB PO SCH ×3 (15:03→21:00)
[2022-09-06 15:11] VITALS: BP 148/76
--- NOTE | 2022-09-06 18:25 | Progress Note - Hospitalist ---
Subjective HPI/CC On Admission Date Seen by Provider: Sep 06, 2022 Time Seen by Provider: 10:00 Ranjith Swanson is a 71 year old male with PMH Parkinson's disease with dementia and psychosis, HTN, HLD, hypothyroidism, who presented after being found down. He is a poor historian due to his dementia. His brother is present and assists with the history He was found down on a sidewalk a couple miles from his home. He has several wounds on his face. He does not remember falling. He lives by himself. His sister helps with his bills and his medications. He has had several falls recently. He was also started on antipsychotics due to delusions, hallucinations, and agitation. He follows with a neurologist in [place], [place]. His PCP is through [facility] in [place]. He denies chest pain, shortness of breath, and abdominal pain. Subjective/Events-last exam He is sleeping. He has been agitated according to nursing staff. Focused Exam Lactate Level 09/05/22 03:27: Lactic Acid Level 3.20*H 09/05/22 06:02: Lactic Acid Level 1.10 Time of Focused Exam: 05:45 Objective Exam Vital Signs Vital Signs Date Time Temp Pulse Resp B/P (MAP) Pulse Ox O2 Delivery O2 Flow Rate FiO2 09/06/22 15:11 36.5 74 18 148/76 (100) 94 Room Air Capillary Refill : Less Than 3 Seconds General Appearance: No Apparent Distress, Chronically ill, Thin Respiratory: Lungs Clear, No Respiratory Distress Cardiovascular: Regular Rate, Rhythm, No Murmur Gastrointestinal: Normal Bowel Sounds, Soft Extremity: Normal Inspection Neurologic/Psychiatric: Other (sleeping) Skin: Normal Color, Warm/Dry Results/Procedures Lab Laboratory Tests 09/06/22 05:45 Patient resulted labs reviewed. Imaging: Reviewed Imaging Report Assessment/Plan Assessment and Plan Assess & Plan/Chief Complaint Ground level fall Nasal fracture Facial lacerations Imaging revealed nasal fracture Trauma surgery consulted PT/OT SW following BOB Lactic acidosis Improved Decrease IV fluids Monitor Parkinson's disease Dementia Psychosis Antipsychotics as needed Stop Geodon Ativan as needed HTN HLD Hypothyroidism Continue home meds Severe protein calorie malnutrition Ensure Goals of care discussion Poor prognosis Palliative care consulted Discussed code status and hospice with family All family agreed to switching to DNR Will discuss hospice options and make decision DVT prophylaxis: Lovenox Diagnosis/Problems Diagnosis/Problems (1) Fall from ground level Status: Acute (2) Nasal fracture Status: Acute Qualifiers: Encounter type: initial encounter Fracture type: closed Qualified Codes: S02.2XXA - Fracture of nasal bones, initial encounter for closed fracture (3) Face lacerations Status: Acute Qualifiers: Encounter type: initial encounter Qualified Codes: S01.81XA - Laceration without foreign body of other part of head, initial encounter (4) BOB (acute kidney injury) Status: Acute (5) Lactic acidosis Status: Acute (6) Parkinson disease Status: Chronic (7) Dementia in Parkinson's disease Status: Chronic (8) 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
[2022-09-06 19:18] VITALS: BP 154/80
[2022-09-06] MEDS: ENOXAPARIN INJECTION 30 MG/0.3 ML SYR SC SCH (21:00)
[2022-09-06] MEDS: AtorvaSTATin TABLET 10 MG TABLET PO SCH (21:00)
[2022-09-06] MEDS: MELATONIN 3 MG TABLET PO PRN (21:30)
[2022-09-06] MEDS: ACETAMINOPHEN 325 MG TABLET PO PRN ×2 (21:30→22:00)
[2022-09-06 23:42] VITALS: BP 156/82
[2022-09-07] MEDS: D5 1/2 NS W/KCL 20 MEQ/L 1,000 ML IV SCH ×3 (01:36→14:52)
[2022-09-07] MEDS: KCL 20 MEQ TAB (K-DUR) PO SCH (06:00)
[2022-09-07] MEDS: MAGNESIUM 1 GM/100 ML IVPB 100 ML IV SCH (06:00)
[2022-09-07] MEDS: POTASSIUM CL 10MEQ/50ML IVPB 50 ML IV SCH (06:00)
[2022-09-07] MEDS: LEVOTHYROXINE 75 MCG (LEVOTHROID) TABLET PO SCH (07:00)
[2022-09-07 07:42] LABS: CALCIUM 8.8 MG/DL (8.5-10.1); CREATININE SERUM 0.75 MG/DL (0.60-1.30); POTASSIUM 3.6 MMOL/L (3.6-5.0)
[2022-09-07 07:49] VITALS: BP 159/72
[2022-09-07] MEDS: DOCUSATE SODIUM 100 MG (COLACE) CAP PO SCH ×2 (09:00→23:22)
[2022-09-07] MEDS: NIFEdipine ER 30 MG (PROCARDIA XL) TAB PO SCH (09:00)
[2022-09-07] MEDS: LORazepam INJ 2 MG/ML (ATIVAN) VIAL IVP PRN ×2 (09:24→23:22)
--- NOTE | 2022-09-07 09:29 | Physical Therapy Progress Note ---
Therapy Progress Note Attempted PT tx this morning but nurse says patient is very agitated this morning and she is getting ready to give him meds to calm him down. Will attempt tx this afternoon if able. JAMARCUS EAGLE PT Sep 07, 2022 09:29
[2022-09-07] MEDS: SINEMET CR 50/200 (CARBIDOPA/LEVODOPA SA) TAB PO SCH ×4 (09:33→23:23)
[2022-09-07] MEDS: risperiDONE 0.5 MG (RisperDAL) TABLET PO SCH ×2 (09:33→23:23)
--- NOTE | 2022-09-07 09:34 | Occ Therapy Progress Note ---
Therapy Progress Note Pt on hold this morning per nurse due to pt being very agitated, requiring medication to calm down. OT will attempt evaluation/tx at next available time. SLIM GALLEGOS OT Sep 07, 2022 09:34
[2022-09-07] MEDS: SENNOSIDES 8.6 MG (SENOKOT) TAB PO SCH ×2 (11:30→23:23)
[2022-09-07] MEDS: lisINopril 40 MG (PRINIVIL) TABLET PO SCH (11:31)
--- NOTE | 2022-09-07 14:40 | Progress Note - Hospitalist ---
Subjective HPI/CC On Admission Date Seen by Provider: Sep 07, 2022 Time Seen by Provider: 10:05 Ranjith Swanson is a 71 year old male with PMH Parkinson's disease with dementia and psychosis, HTN, HLD, hypothyroidism, who presented after being found down. He is a poor historian due to his dementia. His brother is present and assists with the history He was found down on a sidewalk a couple miles from his home. He has several wounds on his face. He does not remember falling. He lives by himself. His sister helps with his bills and his medications. He has had several falls recently. He was also started on antipsychotics due to delusions, hallucinations, and agitation. He follows with a neurologist in [place], [place]. His PCP is through the [facility] in [place]. He denies chest pain, shortness of breath, and abdominal pain. Subjective/Events-last exam He is trying to climb out of bed. He denies pain. He has no complaints. He is confused. Focused Exam Lactate Level 09/05/22 03:27: Lactic Acid Level 3.20*H 09/05/22 06:02: Lactic Acid Level 1.10 Time of Focused Exam: 05:45 Objective Exam Vital Signs Vital Signs Date Time Temp Pulse Resp B/P (MAP) Pulse Ox O2 Delivery O2 Flow Rate FiO2 09/07/22 08:00 96 Room Air 09/07/22 07:49 36.8 79 24 159/72 (101) Capillary Refill : Less Than 3 Seconds General Appearance: No Apparent Distress, Chronically ill, Thin Respiratory: Lungs Clear, No Respiratory Distress Cardiovascular: Regular Rate, Rhythm, No Murmur Gastrointestinal: Normal Bowel Sounds, Soft Extremity: Normal Inspection, No Pedal Edema Neurologic/Psychiatric: Alert, Disoriented Skin: Normal Color, Warm/Dry Results/Procedures Lab Laboratory Tests 09/07/22 07:18 Patient resulted labs reviewed. Imaging: Reviewed Imaging Report Assessment/Plan Assessment and Plan Assess & Plan/Chief Complaint Ground level fall Nasal fracture Facial lacerations Imaging revealed nasal fracture Trauma surgery consulted PT/OT SW following Parkinson's disease Dementia Psychosis Antipsychotics as needed Stop Geodon Ativan as needed HTN HLD Hypothyroidism Continue home meds Severe protein calorie malnutrition Ensure Goals of care discussion Poor prognosis Palliative care consulted Discussed code status and hospice with family Referral made to [facility], plan to transfer to [facility] once a bed available DVT prophylaxis: Lovenox BOB, resolved Lactic acidosis, resolved Diagnosis/Problems Diagnosis/Problems (1) Fall from ground level Status: Acute (2) Nasal fracture Status: Acute Qualifiers: Encounter type: initial encounter Fracture type: closed Qualified Codes: S02.2XXA - Fracture of nasal bones, initial encounter for closed fracture (3) Face lacerations Status: Acute Qualifiers: Encounter type: initial encounter Qualified Codes: S01.81XA - Laceration without foreign body of other part of head, initial encounter (4) BOB (acute kidney injury) Status: Resolved Resolution Date/Time: 09/07/22 @ 14:41 (5) Lactic acidosis Status: Resolved Resolution Date/Time: 09/07/22 @ 14:41 (6) Parkinson disease Status: Chronic (7) Dementia in Parkinson's disease Status: Chronic (8) 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
--- NOTE | 2022-09-07 14:45 | Physical Therapy Progress Note ---
Therapy Progress Note Discussed treatment with nurse, Jazmine. She reports patient has been agitated and combative and was recently given Ativan. Reports he is currently sleeping and would request hold at this time. Will attempt treatment again in am, however patients family is discussing hospice. If patient placed on hospice he will be discharged from PT treatment. RACHEL AGUERO PT Sep 07, 2022 14:45
[2022-09-07 15:06] VITALS: BP 135/89
[2022-09-07] MEDS: ENOXAPARIN INJECTION 30 MG/0.3 ML SYR SC SCH (23:23)
[2022-09-07] MEDS: AtorvaSTATin TABLET 10 MG TABLET PO SCH (23:23)
[2022-09-07] MEDS: MELATONIN 3 MG TABLET PO PRN (23:23)
[2022-09-07 23:24] VITALS: BP 152/86
[2022-09-08] MEDS: D5 1/2 NS W/KCL 20 MEQ/L 1,000 ML IV SCH ×2 (04:18→17:41)
[2022-09-08] MEDS: POTASSIUM CL 10MEQ/50ML IVPB 50 ML IV SCH (06:00)
[2022-09-08] MEDS: MAGNESIUM 1 GM/100 ML IVPB 100 ML IV SCH (06:00)
[2022-09-08] MEDS: KCL 20 MEQ TAB (K-DUR) PO SCH (06:00)
[2022-09-08 06:15] LABS: POTASSIUM 3.5 MMOL/L (3.6-5.0)
[2022-09-08 06:17] LABS: CALCIUM 8.7 MG/DL (8.5-10.1)
[2022-09-08 06:21] LABS: CREATININE SERUM 0.71 MG/DL (0.60-1.30)
[2022-09-08 06:23] LABS: MAGNESIUM 1.7 MG/DL (1.6-2.4)
[2022-09-08] MEDS: LEVOTHYROXINE 75 MCG (LEVOTHROID) TABLET PO SCH (07:33)
[2022-09-08 07:46] VITALS: BP 137/85
[2022-09-08] MEDS ORDERED: KCL 20 MEQ TAB (K-DUR) PO NR (08:00)
[2022-09-08] MEDS: DOCUSATE SODIUM 100 MG (COLACE) CAP PO SCH ×2 (09:09→19:16)
[2022-09-08] MEDS: SINEMET CR 50/200 (CARBIDOPA/LEVODOPA SA) TAB PO SCH ×4 (09:09→19:16)
[2022-09-08] MEDS: SENNOSIDES 8.6 MG (SENOKOT) TAB PO SCH ×2 (09:09→19:16)
[2022-09-08] MEDS: lisINopril 40 MG (PRINIVIL) TABLET PO SCH (09:09)
[2022-09-08] MEDS: risperiDONE 0.5 MG (RisperDAL) TABLET PO SCH ×2 (09:10→19:16)
[2022-09-08] MEDS: NIFEdipine ER 30 MG (PROCARDIA XL) TAB PO SCH (09:10)
--- NOTE | 2022-09-08 10:23 | Physical Therapy Daily Note ---
PT Daily Note-Current Subjective Patient much more alert on this date. Agrees to PT. Live sitter present. Pain Section J - Health Conditions 1. Rarely or not at all 2. Occasionally 3. Frequently 4. Almost constantly 8. Unable to answer Pain Effect on Sleep: 8 Pain Interference with Therapy: 8 Pain Interference w/Day-to-Day: 8 Mental Status Patient Orientation: Confused Transfers SCALE: Activities may be completed with or without assistive devices. 7-Djkpiszclw-vhryhfr completes the activity by him/herself with no assistance from a helper. 5-Set-up or Clean-up Assistance-helper sets up or cleans up; patient completes activity. [place] assists only prior to or following the activity. 4-Supervision or Touching Assistance-helper provides verbal cues and/or touching/steadying and/or contact guard assistance as patient completes activity. Assistance may be provided throughout the activity or intermittently. 3-Partial/Moderate Assistance-helper does LESS THAN HALF the effort. [place] lifts, holds or supports trunk or limbs, but provides less than half the effort. 2-Substantial/Maximal Assistance-helper does MORE THAN HALF the effort. [place] lifts or holds trunk or limbs and provides more than half the effort. 2-Fnuwhgdyu-jrgdyc does ALL the effort. Patient does none of the effort to complete the activity. Or, the assistance of 2 or more helpers is required for the patient to complete the activity. If activity was not attempted, code reason: 7-Patient Refused. 9-Not Applicable-not attempted and the patient did not perform the activity before the current illness, exacerbation or injury. 10-Not Attempted due to Environmental Limitations-(lack of equipment, weather restraints, etc.). 88-Not Attempted due to Medical Conditions or Safety Concerns. Lying to Sitting/Side of Bed(Q: 4 Sit to Stand (QC): 3 Chair/Tgq-rt-[place] Xfer(QC): 3 Weight Bearing Right Lower Extremity: Right Weight Bearing/Tolerated Left Lower Extremity: Left Weight Bearing/Tolerated Gait Training Distance: 100' Walk 10 feet (QC): 3 Walk 50 ft with 2 Turns(QC): 3 Gait Assistive Device: FWW tactile and verbal cues for gait sequence and body placement (Parkinson' gait) Assessment Patient much improved with mobility on this date. Patient alert and very cooperative. Patient is up in recliner with chair alarm activated and live sitter present. PT Counting Machine Operator Goals Prison Goals PT Counting Machine Operator Goals Time Frame: Sep 23, 2022 Roll Left & Right (QC): 4 Sit to Lying (QC): 4 Lying-Sitting on Side/Bed(QC): 4 Sit to Stand (QC): 4 Chair/Rgx-vz-Irkcw Xfer(QC): 4 Walk 10 feet (QC): 4 Walk 50ft with 2 Turns (QC): 4 Walk 150 ft (QC): 4 PT Plan Treatment/Plan Treatment Plan: Continue Plan of Care Treatment Plan: Bed Mobility, Education, Functional Activity Clementina, Functional Strength, Gait, Safety, Therapeutic Exercise, Transfers Treatment Duration: Sep 23, 2022 Frequency: 6 times per week Estimated Hrs Per Day: .25 hour per day Time/GCodes Time In: 918 Time Out: 931 Total Billed Treatment Time: 13 Total Billed Treatment 1 visit GT 13 min MARLENI PEARCE PT Sep 08, 2022 10:23
--- NOTE | 2022-09-08 11:35 | Occ Therapy Progress Note ---
Therapy Progress Note OT attempted evaluation/tx, but pt currently sleeping. OT talked with pt's nurse who requests to hold off on tx at this time and allow pt to sleep, as pt has not slept much recently. OT will attempt again next available time. 1125 SLIM GALLEGOS OT Sep 08, 2022 11:35
--- NOTE | 2022-09-08 13:28 | Occupational Therapy Eval ---
OT Evaluation-General/PLF Medical Diagnosis Admission Date Sep 07, 2022 at 08:00 Medical Diagnosis: closed head injury/face laceration Onset Date: Sep 05, 2022 Therapy Diagnosis Therapy Diagnosis: decreased ADL status Height/Weight Height (Feet): 5 Height (Inches): 7.00 Weight (Pounds): 156 Weight (Ounces): 0.0 Precautions Precautions/Isolations: Fall Prevention, Standard Precautions Referral Physician: Balta Referral Reason: Evaluation/Treatment Medical History Pertinent Medical History: GERD, HTN, Hypothroidism, Parkinson's, Smoking Additional Medical History HTN, HLD, Parkinson's Current History Pt found down by bystander, wound face, R elbow/forearm, and comminuted nasal fractures. Social History Home: Single Level Current Living Status: Alone ADL-Prior Level of Function SCALE: Activities may be completed with or without assistive devices. 1-Dplsxktvsl-oppjgyk completes the activity by him/herself with no assistance from a helper. 5-Set-up or Clean-up Assistance-helper sets up or cleans up; patient completes activity. [place] assists only prior to or following the activity. 4-Supervision or Touching Assistance-helper provides verbal cues and/or touching/steadying and/or contact guard assistance as patient completes activity. Assistance may be provided throughout the activity or intermittently. 3-Partial/Moderate Assistance-helper does LESS THAN HALF the effort. [place] lifts, holds or supports trunk or limbs, but provides less than half the effort. 2-Substantial/Maximal Assistance-helper does MORE THAN HALF the effort. [place] lifts or holds trunk or limbs and provides more than half the effort. 7-Pgdalahft-bezpts does ALL the effort. Patient does none of the effort to complete the activity. Or, the assistance of 2 or more helpers is required for the patient to complete the activity. If activity was not attempted, code reason: 7-Patient Refused. 9-Not Applicable-not attempted and the patient did not perform the activity before the current illness, exacerbation or injury. 10-Not Attempted due to Environmental Limitations-(lack of equipment, weather restraints, etc.). 88-Not Attempted due to Medical Conditions or Safety Concerns. ADL PLOF Comments Pt's family indicate pt lives alone but has another family member check on him 2-4 times a day to provide assistance with medication management. Pt is typically able to dress, toilet, bathe and feed self at [facility]. OT Current Status Subjective Pt up in recliner eating lunch, 2 family members at bedside. Live sitter present Mental Status/Objective Patient Orientation: Person, Confused Attachments: IV Current Upper Extremity ROM WFL, RUE shoulder flexion to approx 130 degrees, LUE to approx 90 degrees with tactile cues for direction Upper Extremity Coordination slightly impaired Upper Extremity Strength grossly 3-/5 ADL-Treatment Eating (QC): 2 (Max A overall. Pt required assistance due to shakiness per nursing staff. Pt was able to drink from a straw with assistance placing straw in mouth) On/Off Footwear (QC): 1 (total assist required.) Other Treatments Pt in recliner, agreeable to OT tx. Pt had some difficulty following instructions during tx. Pt completed UE screen, required tactile and verbal cues to assess ROM, and pt had difficulty following instructions for MMT. Per family/nursing report, pt required max A overall with his meal, due to shakiness in hands and decreased coordination. Footwear attempted but pt unable to follow instructions for testing. OT assisted pt in performing figure 4 method to reach sock, and hand over hand guidance of pt's hand to the sock. Pt encouraged by family members and OT to complete task, but he didn't initiate movements to complete footwear. OT placed pt's lunch tray back in front of him. Post tx, pt in recliner, call light in reach and all needs met. Family and live sitter present. Education OT Patient Education: Correct positioning, Modified ADL techniques, Progress toward Goal/Update tx plan, Purpose of tx/functional activities, Rehab process Teaching Recipient: Patient Teaching Methods: Demonstration, Discussion Response to Teaching: Reinforcement Needed OT Oven Roaster Goals Snf Goals Time Frame: Sep 22, 2022 Eating (QC): 4 Oral Hygiene (QC): 3 Toileting Hygiene (QC): 3 Shower/Bathe Self (QC): 3 Upper Body Dressing (QC): 4 Lower Body Dressing (QC): 3 On/Off Footwear (QC): 3 Additional Goals: 1-Demonstrate ADL Tasks, 2-Verbalize Understanding, 3-ImproveStrength/Clementina 1=Demonstrate adherence to instructed precautions during ADL tasks. 2=Patient will verbalize/demonstrate understanding of assistive devices/modifications for ADL. 3=Patient will improve strength/tolerance for activity to enable patient to perform ADL's. OT Education/Plan Problem List/Assessment Assessment: Decreased Activ Tolerance, Decreased Safety Aware, Decreased UE Strength, Impaired Funct Balance, Impaired I ADL's, Impaired Self-Care Skills Discharge Recommendations Plan/Recommendations: Continue POC Therapy Discharge Recommendati: Post Acute OT (SNF) Treatment Plan/Plan of Care Patient would benefit from OT for education, treatment and training to promote independence in ADL's, mobility, safety and/or upper extremity function for ADL's. Plan of Care: ADL Retraining, Functional Mobility, UE Funct Exercise/Act Treatment Duration: Sep 22, 2022 Frequency: 3 times per week (3-5 times per week) Rehab Potential: Guarded Time/GCodes Start Time: 13:08 Stop Time: 13:17 Total Time Billed (hr/min): 9 Billed Treatment Time 1, SLIM ROBLERO OT Sep 08, 2022 13:28
--- NOTE | 2022-09-08 15:04 | Progress Note - Hospitalist ---
Subjective HPI/CC On Admission Date Seen by Provider: Sep 08, 2022 Time Seen by Provider: 11:00 Ranjith Swanson is a 71 year old male with PMH Parkinson's disease with dementia and psychosis, HTN, HLD, hypothyroidism, who presented after being found down. He is a poor historian due to his dementia. His brother is present and assists with the history He was found down on a sidewalk a couple miles from his home. He has several wounds on his face. He does not remember falling. He lives by himself. His sister helps with his bills and his medications. He has had several falls recently. He was also started on antipsychotics due to delusions, hallucinations, and agitation. He follows with a neurologist in [place], [place]. His PCP is through the [facility] in [place]. He denies chest pain, shortness of breath, and abdominal pain. Subjective/Events-last exam He is sleeping on my arrival. He ate most of his breakfast. He walked in the [facility] with therapy. Focused Exam Time of Focused Exam: 05:45 Objective Exam Vital Signs Vital Signs Date Time Temp Pulse Resp B/P (MAP) Pulse Ox O2 Delivery O2 Flow Rate FiO2 09/08/22 08:00 96 Room Air 09/08/22 07:46 36.8 93 18 137/85 (102) Capillary Refill : Less Than 3 Seconds General Appearance: No Apparent Distress, Chronically ill, Thin Respiratory: No Respiratory Distress, Decreased Breath Sounds Cardiovascular: Regular Rate, Rhythm, No Murmur Gastrointestinal: Normal Bowel Sounds, Soft Extremity: Normal Inspection, No Pedal Edema Skin: Warm/Dry, Other (facial lacerations) Results/Procedures Lab Laboratory Tests 09/08/22 05:20 Patient resulted labs reviewed. Imaging: Reviewed Imaging Report Assessment/Plan Assessment and Plan Assess & Plan/Chief Complaint Ground level fall Nasal fracture Facial lacerations Imaging revealed nasal fracture PT/OT SW following Parkinson's disease Dementia Psychosis Haldol as needed Ativan as needed HTN HLD Hypothyroidism Continue home meds Severe protein calorie malnutrition Ensure Goals of care discussion Poor prognosis Palliative care following Planning for discharge to PC&R for skilled therapy Consider transition to hospice if no improvement DVT prophylaxis: Lovenox BOB, resolved Lactic acidosis, resolved Diagnosis/Problems Diagnosis/Problems (1) Fall from ground level Status: Acute (2) Nasal fracture Status: Acute Qualifiers: Encounter type: initial encounter Fracture type: closed Qualified Codes: S02.2XXA - Fracture of nasal bones, initial encounter for closed fracture (3) Face lacerations Status: Acute Qualifiers: Encounter type: initial encounter Qualified Codes: S01.81XA - Laceration without foreign body of other part of head, initial encounter (4) BOB (acute kidney injury) Status: Resolved Resolution Date/Time: 09/07/22 @ 14:41 (5) Lactic acidosis Status: Resolved Resolution Date/Time: 09/07/22 @ 14:41 (6) Parkinson disease Status: Chronic (7) Dementia in Parkinson's disease Status: Chronic (8) 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
[2022-09-08 15:05] VITALS: BP 78/62
[2022-09-08 16:32] VITALS: BP 95/58
[2022-09-08] MEDS: AtorvaSTATin TABLET 10 MG TABLET PO SCH (19:16)
[2022-09-08] MEDS: ENOXAPARIN INJECTION 30 MG/0.3 ML SYR SC SCH (19:17)
[2022-09-08] MEDS: LORazepam INJ 2 MG/ML (ATIVAN) VIAL IVP PRN (23:22)
[2022-09-08 23:31] VITALS: BP 109/68
[2022-09-09] MEDS: HALOPERIDOL 5 MG/ML (HALDOL) VIAL IM PRN ×2 (00:58→10:48)
[2022-09-09 05:26] LABS: POTASSIUM 3.8 MMOL/L (3.6-5.0)
[2022-09-09 05:27] LABS: CALCIUM 8.6 MG/DL (8.5-10.1)
[2022-09-09 05:32] LABS: CREATININE SERUM 0.79 MG/DL (0.60-1.30)
[2022-09-09] MEDS: KCL 20 MEQ TAB (K-DUR) PO SCH (05:32)
[2022-09-09] MEDS: POTASSIUM CL 10MEQ/50ML IVPB 50 ML IV SCH (05:32)
[2022-09-09 05:34] LABS: MAGNESIUM 1.8 MG/DL (1.6-2.4)
[2022-09-09] MEDS: LEVOTHYROXINE 75 MCG (LEVOTHROID) TABLET PO SCH (05:48)
[2022-09-09] MEDS: MAGNESIUM 1 GM/100 ML IVPB 100 ML IV SCH (05:48)
[2022-09-09] MEDS: D5 1/2 NS W/KCL 20 MEQ/L 1,000 ML IV SCH ×2 (05:55→19:28)
[2022-09-09 07:30] VITALS: BP 92/62
[2022-09-09] MEDS: LORazepam INJ 2 MG/ML (ATIVAN) VIAL IVP PRN ×3 (08:04→23:07)
--- NOTE | 2022-09-09 10:52 | Physical Therapy Progress Note ---
Therapy Progress Note Pt. in bed with live sitter present. Pt. is combative and trying to get out of bed, unwilling to put on hospital gown. Nurse states patient is unsafe to ambulate due to recent Ativan medication. Pt. was asleep and unable to arouse after 2-3 minutes in room. Pt. repositioned in bed with assist from nurse aide. No treatment completed this date. 1, visit only [id number] CATHY WANG PT Sep 09, 2022 10:52
[2022-09-09] MEDS: risperiDONE 0.5 MG (RisperDAL) TABLET PO SCH ×2 (10:55→19:28)
[2022-09-09] MEDS: NIFEdipine ER 30 MG (PROCARDIA XL) TAB PO SCH (10:55)
[2022-09-09] MEDS: SENNOSIDES 8.6 MG (SENOKOT) TAB PO SCH ×2 (10:55→19:28)
[2022-09-09] MEDS: DOCUSATE SODIUM 100 MG (COLACE) CAP PO SCH ×2 (10:55→19:28)
[2022-09-09] MEDS: SINEMET CR 50/200 (CARBIDOPA/LEVODOPA SA) TAB PO SCH ×4 (10:56→19:28)
[2022-09-09] MEDS: lisINopril 40 MG (PRINIVIL) TABLET PO SCH (10:56)
[2022-09-09 12:55] VITALS: BP 99/57
[2022-09-09 15:07] VITALS: BP 116/71
--- NOTE | 2022-09-09 16:08 | Progress Note - Hospitalist ---
Subjective HPI/CC On Admission Date Seen by Provider: Sep 09, 2022 Time Seen by Provider: 11:20 Ranjith Swanson is a 71 year old male with PMH Parkinson's disease with dementia and psychosis, HTN, HLD, hypothyroidism, who presented after being found down. He is a poor historian due to his dementia. His brother is present and assists with the history He was found down on a sidewalk a couple miles from his home. He has several wounds on his face. He does not remember falling. He lives by himself. His sister helps with his bills and his medications. He has had several falls recently. He was also started on antipsychotics due to delusions, hallucinations, and agitation. He follows with a neurologist in [place], [place]. His PCP is through the [facility] in [place]. He denies chest pain, shortness of breath, and abdominal pain. Subjective/Events-last exam He is sleeping on my arrival. He wakes up and denies any complaints. Focused Exam Time of Focused Exam: 05:45 Objective Exam Vital Signs Vital Signs Date Time Temp Pulse Resp B/P (MAP) Pulse Ox O2 Delivery O2 Flow Rate FiO2 09/09/22 15:07 36.4 76 18 116/71 (86) 97 Room Air Capillary Refill : Less Than 3 Seconds General Appearance: No Apparent Distress, Chronically ill, Thin Respiratory: Lungs Clear, No Respiratory Distress Cardiovascular: Regular Rate, Rhythm, No Murmur Gastrointestinal: Normal Bowel Sounds, Soft Extremity: Normal Inspection, No Pedal Edema Neurologic/Psychiatric: Alert, Disoriented Results/Procedures Lab Laboratory Tests 09/09/22 04:45 Patient resulted labs reviewed. Imaging: Reviewed Imaging Report Assessment/Plan Assessment and Plan Assess & Plan/Chief Complaint Ground level fall Nasal fracture Facial lacerations Imaging revealed nasal fracture PT/OT SW following Parkinson's disease Dementia Psychosis Haldol as needed Ativan as needed HTN HLD Hypothyroidism Continue home meds Severe protein calorie malnutrition Ensure Goals of care discussion Poor prognosis Palliative care following Planning for discharge to PC&R for skilled therapy Consider transition to hospice if no improvement DVT prophylaxis: Lovenox BOB, resolved Lactic acidosis, resolved Diagnosis/Problems Diagnosis/Problems (1) Fall from ground level Status: Acute (2) Nasal fracture Status: Acute Qualifiers: Encounter type: initial encounter Fracture type: closed Qualified Codes: S02.2XXA - Fracture of nasal bones, initial encounter for closed fracture (3) Face lacerations Status: Acute Qualifiers: Encounter type: initial encounter Qualified Codes: S01.81XA - Laceration without foreign body of other part of head, initial encounter (4) BOB (acute kidney injury) Status: Resolved Resolution Date/Time: 09/07/22 @ 14:41 (5) Lactic acidosis Status: Resolved Resolution Date/Time: 09/07/22 @ 14:41 (6) Parkinson disease Status: Chronic (7) Dementia in Parkinson's disease Status: Chronic (8) 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
[2022-09-09 19:02] VITALS: BP 122/68
[2022-09-09] MEDS: AtorvaSTATin TABLET 10 MG TABLET PO SCH (19:28)
[2022-09-09] MEDS: ENOXAPARIN INJECTION 30 MG/0.3 ML SYR SC SCH (19:33)
[2022-09-09 23:04] VITALS: BP 130/81
[2022-09-10] MEDS: HALOPERIDOL 5 MG/ML (HALDOL) VIAL IM PRN (02:26)
[2022-09-10] MEDS: LORazepam INJ 2 MG/ML (ATIVAN) VIAL IVP PRN (03:19)
[2022-09-10] MEDS: LEVOTHYROXINE 75 MCG (LEVOTHROID) TABLET PO SCH (05:59)
[2022-09-10 07:00] LABS: POTASSIUM 3.8 MMOL/L (3.6-5.0)
[2022-09-10 07:01] LABS: CALCIUM 8.7 MG/DL (8.5-10.1)
[2022-09-10 07:03] VITALS: BP 191/91
[2022-09-10 07:05] LABS: CREATININE SERUM 0.77 MG/DL (0.60-1.30)
[2022-09-10 07:08] LABS: MAGNESIUM 1.8 MG/DL (1.6-2.4)
[2022-09-10] MEDS: MAGNESIUM 1 GM/100 ML IVPB 100 ML IV SCH (07:31)
[2022-09-10] MEDS: POTASSIUM CL 10MEQ/50ML IVPB 50 ML IV SCH (07:31)
[2022-09-10] MEDS: KCL 20 MEQ TAB (K-DUR) PO SCH (07:31)
[2022-09-10] MEDS: lisINopril 40 MG (PRINIVIL) TABLET PO SCH (07:43)
[2022-09-10] MEDS: NIFEdipine ER 30 MG (PROCARDIA XL) TAB PO SCH (08:11)
[2022-09-10] MEDS: SENNOSIDES 8.6 MG (SENOKOT) TAB PO SCH ×2 (08:11→19:32)
[2022-09-10] MEDS: DOCUSATE SODIUM 100 MG (COLACE) CAP PO SCH ×2 (08:11→19:32)
[2022-09-10] MEDS: risperiDONE 0.5 MG (RisperDAL) TABLET PO SCH ×2 (08:11→19:32)
[2022-09-10] MEDS: SINEMET CR 50/200 (CARBIDOPA/LEVODOPA SA) TAB PO SCH ×4 (08:11→19:31)
[2022-09-10] MEDS: D5 1/2 NS W/KCL 20 MEQ/L 1,000 ML IV SCH ×2 (08:41→22:03)
[2022-09-10 15:27] VITALS: BP 107/66
[2022-09-10] MEDS: AtorvaSTATin TABLET 10 MG TABLET PO SCH (19:31)
[2022-09-10] MEDS: ENOXAPARIN INJECTION 30 MG/0.3 ML SYR SC SCH (19:32)
--- NOTE | 2022-09-10 20:18 | Progress Note - Hospitalist ---
Subjective HPI/CC On Admission Date Seen by Provider: Sep 10, 2022 Time Seen by Provider: 11:45 Ranjith Swanson is a 71 year old male with PMH Parkinson's disease with dementia and psychosis, HTN, HLD, hypothyroidism, who presented after being found down. He is a poor historian due to his dementia. His brother is present and assists with the history He was found down on a sidewalk a couple miles from his home. He has several wounds on his face. He does not remember falling. He lives by himself. His sister helps with his bills and his medications. He has had several falls recently. He was also started on antipsychotics due to delusions, hallucinations, and agitation. He follows with a neurologist in [place], [place]. His PCP is through the [facility] in [place]. He denies chest pain, shortness of breath, and abdominal pain. Subjective/Events-last exam He is awake. He is confused. His family is at the bedside and they were updated on his condition and plan. Focused Exam Time of Focused Exam: 05:45 Objective Exam Vital Signs Vital Signs Date Time Temp Pulse Resp B/P (MAP) Pulse Ox O2 Delivery O2 Flow Rate FiO2 09/10/22 19:35 Room Air 09/10/22 15:27 37.1 91 16 107/66 (80) 95 Capillary Refill : Less Than 3 Seconds General Appearance: No Apparent Distress, Chronically ill, Thin Respiratory: Lungs Clear, No Respiratory Distress Cardiovascular: Regular Rate, Rhythm, No Murmur Gastrointestinal: Normal Bowel Sounds, Soft Extremity: Normal Inspection, No Pedal Edema Neurologic/Psychiatric: Alert, Disoriented Skin: Warm/Dry, Other (facial lacerations) Results/Procedures Lab Laboratory Tests 09/10/22 06:44 Patient resulted labs reviewed. Imaging: Reviewed Imaging Report Assessment/Plan Assessment and Plan Assess & Plan/Chief Complaint Ground level fall Nasal fracture Facial lacerations Imaging revealed nasal fracture PT/OT SW following Parkinson's disease Dementia Psychosis Haldol as needed Ativan as needed HTN HLD Hypothyroidism Continue home meds Severe protein calorie malnutrition Ensure Goals of care discussion Poor prognosis Palliative care following Planning for discharge to PC&R for skilled therapy Consider transition to hospice if no improvement DVT prophylaxis: Lovenox BOB, resolved Lactic acidosis, resolved Diagnosis/Problems Diagnosis/Problems (1) Fall from ground level Status: Acute (2) Nasal fracture Status: Acute Qualifiers: Encounter type: initial encounter Fracture type: closed Qualified Codes: S02.2XXA - Fracture of nasal bones, initial encounter for closed fracture (3) Face lacerations Status: Acute Qualifiers: Encounter type: initial encounter Qualified Codes: S01.81XA - Laceration without foreign body of other part of head, initial encounter (4) BOB (acute kidney injury) Status: Resolved Resolution Date/Time: 09/07/22 @ 14:41 (5) Lactic acidosis Status: Resolved Resolution Date/Time: 09/07/22 @ 14:41 (6) Parkinson disease Status: Chronic (7) Dementia in Parkinson's disease Status: Chronic (8) 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
[2022-09-10 23:03] VITALS: BP 121/71
[2022-09-11] MEDS: LEVOTHYROXINE 75 MCG (LEVOTHROID) TABLET PO SCH (05:11)
[2022-09-11 07:28] VITALS: BP 140/77
[2022-09-11] MEDS: risperiDONE 0.5 MG (RisperDAL) TABLET PO SCH (07:52)
[2022-09-11] MEDS: NIFEdipine ER 30 MG (PROCARDIA XL) TAB PO SCH (07:52)
[2022-09-11] MEDS: DOCUSATE SODIUM 100 MG (COLACE) CAP PO SCH (07:53)
[2022-09-11] MEDS: lisINopril 40 MG (PRINIVIL) TABLET PO SCH (07:53)
[2022-09-11] MEDS: SENNOSIDES 8.6 MG (SENOKOT) TAB PO SCH (07:53)
[2022-09-11] MEDS: SINEMET CR 50/200 (CARBIDOPA/LEVODOPA SA) TAB PO SCH ×2 (07:53→13:17)
--- NOTE | 2022-09-11 09:04 | Discharge Inst-Skilled Nursing ---
Discharge Inst-Skilled NF Chief Complaint Ranjith Swanson is a 71 year old male with PMH Parkinson's disease with dementia and psychosis, HTN, HLD, hypothyroidism, who presented after being found down. He is a poor historian due to his dementia. His brother is present and assists with the history He was found down on a sidewalk a couple miles from his home. He has several wounds on his face. He does not remember falling. He lives by himself. His sister helps with his bills and his medications. He has had several falls recently. He was also started on antipsychotics due to delusions, hallucinations, and agitation. He follows with a neurologist in [place], [place]. [facility] [place] He denies chest pain, shortness of breath, and abdominal pain. Consult/Follow Up/Orders Skilled NF Admit to: [facility] Certification (SNF) I certify that SNF services are required to be given on an inpatient basis b ecause of the above named patient's need for [facility] care on a continuing basis for the conditions(s) for which he/she was receiving inpatient hospital services prior to his/her transfer to the SNF. Residential Facility Order: Nursing Services, [facility]-Evaluate & Treat, Physical Therapy-Evaluate & Treat Oxygen Delivery Method: Room Air Discharge Diet: No Restrictions Daily Activity as Tolerated: Yes Resuscitation Status: Do Not Resuscitate New & Resume Previous Orders Erlinda Nova Sep 11, 2022 09:00 ERLINDA NOVA MD Sep 11, 2022 09:04
[2022-09-11 09:10] VITALS: BP 129/72
--- NOTE | 2022-09-11 10:35 | Physical Therapy Daily Note ---
PT Daily Note-Current Subjective Patient requests to use commode. Alert but not as alert as last week. Pain Section J - Health Conditions 1. Rarely or not at all 2. Occasionally 3. Frequently 4. Almost constantly 8. Unable to answer Pain Effect on Sleep: 8 Pain Interference with Therapy: 8 Pain Interference w/Day-to-Day: 8 Mental Status Patient Orientation: Confused Attachments: IV Transfers SCALE: Activities may be completed with or without assistive devices. 9-Qztogxoqkx-fpieaaj completes the activity by him/herself with no assistance from a helper. 5-Set-up or Clean-up Assistance-helper sets up or cleans up; patient completes activity. [place] assists only prior to or following the activity. 4-Supervision or Touching Assistance-helper provides verbal cues and/or touching/steadying and/or contact guard assistance as patient completes activity. Assistance may be provided throughout the activity or intermittently. 3-Partial/Moderate Assistance-helper does LESS THAN HALF the effort. [place] lifts, holds or supports trunk or limbs, but provides less than half the effort. 2-Substantial/Maximal Assistance-helper does MORE THAN HALF the effort. [place] lifts or holds trunk or limbs and provides more than half the effort. 0-Ejrcjaxsx-xzueyb does ALL the effort. Patient does none of the effort to com plete the activity. Or, the assistance of 2 or more helpers is required for the patient to complete the activity. If activity was not attempted, code reason: 7-Patient Refused. 9-Not Applicable-not attempted and the patient did not perform the activity before the current illness, exacerbation or injury. 10-Not Attempted due to Environmental Limitations-(lack of equipment, weather restraints, etc.). 88-Not Attempted due to Medical Conditions or Safety Concerns. Sit to Lying (QC): 2 Lying to Sitting/Side of Bed(Q: 2 Sit to Stand (QC): 2 Toilet Transfer (QC): 2 Weight Bearing Right Lower Extremity: Right Weight Bearing/Tolerated Left Lower Extremity: Left Weight Bearing/Tolerated Gait Training Distance: 5' x 2 Gait Assistive Device: FWW severely retropulsive with PT correct Assessment Patient requires dependent assist of ROLL MECHANIC to cleanse after BM on commode. Patient tolerated treatment well, however, not safe to ambulate out side of room due to severe retropulsion. PT Agriculture Teacher Goals Long-Term Goals PT Agriculture Teacher Goals Time Frame: Sep 23, 2022 Roll Left & Right (QC): 4 Sit to Lying (QC): 4 Lying-Sitting on Side/Bed(QC): 4 Sit to Stand (QC): 4 Chair/Ssa-ce-Efgtu Xfer(QC): 4 Walk 10 feet (QC): 4 Walk 50ft with 2 Turns (QC): 4 Walk 150 ft (QC): 4 PT Plan Treatment/Plan Treatment Plan: Continue Plan of Care Treatment Plan: Bed Mobility, Education, Functional Activity [place], Functional Strength, Gait, Safety, Therapeutic Exercise, Transfers Treatment Duration: Sep 23, 2022 Frequency: 6 times per week Estimated Hrs Per Day: .25 hour per day Time/GCodes Time In: 933 Time Out: 957 Total Billed Treatment Time: 24 Total Billed Treatment 1 visit FA x 2 24 min MARLENI PEARCE PT Sep 11, 2022 10:35
[2022-09-11] MEDS: D5 1/2 NS W/KCL 20 MEQ/L 1,000 ML IV SCH (11:18)
--- NOTE | 2022-09-11 11:29 | Occupational Ther Daily Note ---
OT Current Status-Daily Note Subjective Pt in bed, agreeable to OT tx. Pt confused throughout tx, asking what the name of Ochoa's cat was, and requesting assistance to get off of the horse. OT attempted to redirect pt to being in hospital bed, but pt persisted that he was on a horse. Telesitter and live sitter present. Mental Status/Objective Patient Orientation: Confused Attachments: IV ADL-Treatment Therapy Code Descriptions/Definitions Functional [place] Measure: 0=Not Assessed/NA 4=Minimal Assistance 1=Total Assistance 5=Supervision or Setup 2=Maximal Assistance 6=Modified [place] 3=Moderate Assistance 7=Complete IndependenceSCALE: Activities may be completed with or without assistive devices. 9-Aevinyeovn-naztzjl completes the activity by him/herself with no assistance from a helper. 5-Set-up or Clean-up Assistance-helper sets up or cleans up; patient completes activity. [place] assists only prior to or following the activity. 4-Supervision or Touching Assistance-helper provides verbal cues and/or touching/steadying and/or contact guard assistance as patient completes activity. Assistance may be provided throughout the activity or intermittently. 3-Partial/Moderate Assistance-helper does LESS THAN HALF the effort. [place] lifts, holds or supports trunk or limbs, but provides less than half the effort. 2-Substantial/Maximal Assistance-helper does MORE THAN HALF the effort. [place] lifts or holds trunk or limbs and provides more than half the effort. 1-Psfzsiwao-absxdx does ALL the effort. Patient does none of the effort to complete the activity. Or, the assistance of 2 or more helpers is required for the patient to complete the activity. If activity was not attempted, code reason: 7-Patient Refused. 9-Not Applicable-not attempted and the patient did not perform the activity before the current illness, exacerbation or injury. 10-Not Attempted due to Environmental Limitations-(lack of equipment, weather restraints, etc.). 88-Not Attempted due to Medical Conditions or Safety Concerns. Other Treatment Pt in bed, OT tx focused on increasing BUE strength and activity tolerance. Pt completed x10 reps each of the following, AAROM exercises, BUES: shoulder flexion, front punch, finger flexion/extension. Pt required AAROM to follow instructions/correct movements with exercises. Post tx, pt in bed, call light in reach and all needs met, bed alarm activated. Telesitter and live sitter present. Education OT Patient Education: Correct positioning, Energy conservation, Exercise program, Modified ADL techniques, Progress toward Goal/Update tx plan, Purpose of tx/functional activities, Rehab process Teaching Recipient: Patient Teaching Methods: Discussion Response to Teaching: Reinforcement Needed OT Residential Goals Residential Goals Time Frame: Sep 22, 2022 Eating (QC): 4 Oral Hygiene (QC): 3 Toileting Hygiene (QC): 3 Shower/Bathe Self (QC): 3 Upper Body Dressing (QC): 4 Lower Body Dressing (QC): 3 On/Off Footwear (QC): 3 Additional Goals: 1-Demonstrate ADL Tasks, 2-Verbalize Understanding, 3- ImproveStrength/[place] 1=Demonstrate adherence to instructed precautions during ADL tasks. 2=Patient will verbalize/demonstrate understanding of assistive devices/modifications for ADL. 3=Patient will improve strength/tolerance for activity to enable patient to perform ADL's. OT Education/Plan Problem List/Assessment Assessment: Decreased Activ Tolerance, Decreased Safety Aware, Decreased UE Strength, Impaired Funct Balance, Impaired I ADL's, Impaired Self-Care Skills Discharge Recommendations Plan/Recommendations: Continue POC Treatment Plan/Plan of Care Patient would benefit from OT for education, treatment and training to promote independence in ADL's, mobility, safety and/or upper extremity function for ADL's. Plan of Care: ADL Retraining, Functional Mobility, UE Funct Exercise/Act Treatment Duration: Sep 22, 2022 Frequency: 3 times per week (3-5 times per week) Rehab Potential: Guarded Time/GCodes Start Time: 10:50 Stop Time: 11:00 Total Time Billed (hr/min): 10 Billed Treatment Time 1, EX SLIM GALLEGOS OT Sep 11, 2022 11:28
[2022-09-11 12:27] VITALS: BP 107/62
--- NOTE | 2022-09-11 15:12 | Discharge Summary ---
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 (9) HTN (hypertension) Status: Chronic (10) Hypothyroidism Status: Chronic (11) Severe protein-calorie malnutrition Status: Acute (12) Goals of care, counseling/discussion Status: Acute (13) Poor prognosis Status: Acute Discharge Summary Discharge Physical Exam Allergies: Coded Allergies: No Known Drug Allergies (Unverified , 09/05/22) Vitals & I&Os Vital Signs Date Time Temp Pulse Resp B/P (MAP) Pulse Ox O2 Delivery O2 Flow Rate FiO2 09/11/22 15:35 36.2 82 16 107/62 96 Room Air General Appearance: Chronically ill, Thin Respiratory: Lungs Clear, No Respiratory Distress Cardiovascular: Regular Rate, Rhythm, No Murmur Neurologic/Psychiatric: Alert Hospital Course Patient was admitted to the hospital secondary to falls and nasal fracture. He has known Parkinson's disease and dementia and was found wandering outside away from his home on the ground. Dr. Chand discussed the case with his family and they elected to pursue placement for skilled therapy. He was discharged to [facility] and rehab for skilled therapy. Labs (last 24 hrs) Microbiology 09/05/22 Blood Culture - Final, Complete No growth Patient resulted labs reviewed. Imaging: Reviewed Imaging Report Discussion & Recommendations Discharge Planning: >30 minutes discharge planning Discharge Home Medications: Active Scripts Active Reported Risperidone 0.5 Mg Tablet 0.5 Mg PO BID Simvastatin 40 Mg Tablet 20 Mg PO HS TAKES OF A 40MG TAB Metamucil Fiber Singles Packet (Psyllium Husk/Aspartame) 3.4 Gram Powd.pack 3.4 Gm PO DAILY PRN Miralax (Polyethylene Glycol 3350) 17 Gram Powd.pack 17 Gm PO DAILY PRN Nifedipine ER (Nifedipine) 60 Mg Tablet.er 120 Mg PO DAILY TAKES 2 (60MG) TABS Lisinopril 40 Mg Tablet 40 Mg PO DAILY Levothyroxine Sodium 75 Mcg Tablet 75 Mcg PO DAILY Hydrochlorothiazide 25 Mg Tablet 25 Mg PO DAILY Carbidopa-Levo ER 50-200 Tab (Carbidopa/Levodopa) 50 Mg-200 Mg Tablet.er 1 Each PO QID Instructions to patient/family Please see electronic discharge instructions given to patient. Problem Qualifiers (1) Nasal fracture: Encounter type: initial encounter Fracture type: closed Qualified Codes: S02.2XXA - Fracture of nasal bones, initial encounter for closed fracture (2) Face lacerations: Encounter type: initial encounter Qualified Codes: S01.81XA - Laceration without foreign body of other part of head, initial encounter ERLINDA NGUYEN MD Sep 11, 2022 15:12
[2022-09-11 15:35] VITALS: BP 107/62
== END 2022-09-11 15:35 | DRG 987 ==
LOC: EDUNIT# 03:09 → ER 03:13 → 4TH 08:17 → UNDOADMOB 08:17 → 4TH 10:38 → UNDOADMOB 09-06 11:06 → OBSVTOIN 09-07 08:00 → INTOOBSV 09-07 08:00 → 4TH 09-08 21:23
PROVIDERS: ADMIT Internal Medicine; ATTEND Internal Medicine
PROC: 0JQ10ZZ Repair Face Subcutaneous Tissue and Fascia, Open Approach (ICD-10-PCS; principal; 2022-09-05)
DX: G20 Parkinson's disease (principal); E43 Unspecified severe protein-calorie malnutrition; E87.20 Acidosis, unspecified; F02.811 Dementia in other diseases classified elsewhere, unspecified severity, with agitation; N17.9 Acute kidney failure, unspecified; F02.82 Dementia in other diseases classified elsewhere, unspecified severity, with psychotic disturbance; S02.2XXA Fracture of nasal bones, initial encounter for closed fracture; S01.81XA Laceration without foreign body of other part of head, initial encounter; I10 Essential (primary) hypertension; E03.9 Hypothyroidism, unspecified; F17.210 Nicotine dependence, cigarettes, uncomplicated; E78.00 Pure hypercholesterolemia, unspecified; W18.30XA Fall on same level, unspecified, initial encounter
CPT/HCPCS: 12053; 36415; 70450; 70486; 71045; 71250; 72125; 72170; 73060; 73090; 74176; 80048; 80053; 80306; 80320; 80329; 81000; 82140; 82150; 82550; 82553; 83605; 83690; 83735; 83874; 83880; 84145; 84443; 84484; 85007; 85027; 85610; 85652; 85730; 86141; 87040; 90715; 93005; 93041; G0378

== ENCOUNTER 2022-11-03 09:05 | Emergency (ER) | payer MEDICARE, OTHER ==
[~2022-11-03] VITALS: Ht 177 cm; Wt 58.6 kg
[~2022-11-03 09:05] MED LIST changes: +CARB1TAB41 PO; +LEVO75TA6 PO; +NFD60TCR PO; +POLY17PO6 PO; +PSYL3.4P5 PO; +RISP0.5T65 PO
--- NOTE | 2022-11-03 09:24 | ED Fall/Injury ---
General Chief Complaint: Trauma-Non Activation Stated Complaint: FALL Source: patient, RN/MD, EMS Exam Limitations: no limitations History of Present Illness Date Seen by Provider: Nov 03, 2022 Time Seen by Provider: 09:15 Initial Comments 72-year-old male presents from a nursing facility where he had a fall at about 230 this morning. He is complaining suppressible right shoulder pain. He is confused at baseline per nursing facility. He is not on any blood thinning medications. On arrival the patient has no specific complaints. He tells us he thinks he tripped causing his fall. He denies any elbow or shoulder pain, chest pain, abdominal pain. Nursing facility has reported that he has had intermittent "low-grade fevers" over the last several days. He has been tested for COVID and the flu and been negative each time. Allergies and Home Medications Allergies Coded Allergies: No Known Drug Allergies (Unverified , 11/03/22) Patient Home Medication List Home Medication List Reviewed: Yes Carbidopa/Levodopa (Carbidopa-Levo ER 50-200 Tab) 50 Mg-200 Mg Tablet.er, 1 EACH PO QID, (Reported) Entered as Reported by: LÓPEZ LANDRY on 09/05/221400 Hydrochlorothiazide (Hydrochlorothiazide) 25 Mg Tablet, 25 MG PO DAILY, (Reported) Entered as Reported by: LÓPEZ LANDRY on 09/05/221400 Levothyroxine Sodium (Levothyroxine Sodium) 75 Mcg Tablet, 75 MCG PO DAILY, (Reported) Entered as Reported by: LÓPEZ LANDRY on 09/05/221400 Lisinopril (Lisinopril) 40 Mg Tablet, 40 MG PO DAILY, (Reported) Entered as Reported by: LÓPEZ LANDRY on 09/05/221400 Nifedipine (Nifedipine ER) 60 Mg Tablet.er, 120 MG PO DAILY, (Reported) Entered as Reported by: LÓPEZ LANDRY on 09/05/221400 Polyethylene Glycol 3350 (Miralax) 17 Gram Powd.pack, 17 GM PO DAILY PRN for CONSTIPATION-2ND LINE, (Reported) Entered as Reported by: LÓPEZ LANDRY on 09/05/221400 Psyllium Husk/Aspartame (Metamucil Fiber Singles Packet) 3.4 Gram Powd.pack, 3.4 GM PO DAILY PRN for CONSTIPATION, (Reported) Entered as Reported by: LÓPEZ LANDRY on 09/05/22 140 Risperidone (Risperidone) 0.5 Mg Tablet, 0.5 MG PO BID, (Reported) Entered as Reported by: LÓPEZ LANDRY on 09/05/221400 Simvastatin (Simvastatin) 40 Mg Tablet, 20 MG PO HS, (Reported) Entered as Reported by: LÓPEZ LANDRY on 09/05/221400 Review of Systems Review of Systems Constitutional: no symptoms reported Eyes: No Symptoms Reported Ears, Nose, Mouth, Throat: no symptoms reported Respiratory: no symptoms reported Cardiovascular: no symptoms reported Gastrointestinal: no symptoms reported Genitourinary: no symptoms reported Musculoskeletal: no symptoms reported Skin: no symptoms reported Psychiatric/Neurological: No Symptoms Reported Past Nmqyxvi-Rhdcyl-Nkmaec Hx Patient Social History Tobacco Use?: No Use of E-Cig and/or Vaping dev: No Substance use?: No Alcohol Use?: No Seasonal Allergies Seasonal Allergies: Yes Past Medical History Surgeries: Yes (colonoscopy) Tonsillectomy Respiratory: No Cardiac: No High Cholesterol, Hypertension Neurological: Yes Parkinson's Disease Genitourinary: No Gastrointestinal: Yes (found on previous colonoscopy report) Diverticulosis, Polyps Musculoskeletal: No Endocrine: No Hypothyroidsim HEENT: No Loss of Vision: Denies Hearing Impairment: Denies Cancer: No Psychosocial: No (sister reports pt has had visual hallucinations for about 6 months) Integumentary: No Blood Disorders: No Family Medical History Reviewed Nursing Family Hx Heart Disease, Diabetes, Other Conditions/Hx SOCIAL HISTORY: -SMOKED 1 PPD X 5 YEARS, QUIT 1988 -DENIES HISTORY OF DRUG USE -HISTORY OF ETOH USE--UNKNOWN AMOUNT OR HOW OFTEN COLONOSCOPY 03/19/[address] STREETER: DONE FOR HISTORY OF POLYPS NO POLYPS OR NEOPLASMS MILD DIVERTICULAR DISEASE. Physical Exam Vital Signs Capillary Refill : Height, Weight, BMI Height: 5'7.00" Weight: 156lbs. 0.0oz. 70.758306mg; 17.51 BMI Method: General Appearance: WD/WN, no apparent distress HEENT: PERRL/EOMI, normal ENT inspection, TMs normal, pharynx normal, other (Small cephalohematoma to the right temporal region.) Neck: non-tender, supple, normal inspection Cardiovascular: regular rate, rhythm, no edema, no gallop, no JVD, no murmur Respiratory: chest non-tender, lungs clear, normal breath sounds, no respiratory distress, no accessory muscle use Gastrointestinal: normal bowel sounds, non tender, soft, no organomegaly Back: normal inspection, no CVA tenderness, no vertebral tenderness Extremities: normal range of motion, non-tender, normal inspection, no pedal edema, no calf tenderness, normal capillary refill Neurologic/Psychiatric: alert, normal mood/affect Skin: normal color, warm/dry Lymphatic: no adenopathy Procedures/Interventions Suture Size: 5-0 Progress/Results/Core Measures Results/Orders Lab Results Laboratory Tests Test 11/03/22 10:50 Range/Units Urine Color YELLOW Urine Clarity CLEAR Urine pH 6.5 5-9 Urine Specific [place] 1.025 H 1.016-1.022 Urine Protein NEGATIVE NEGATIVE Urine Glucose (UA) NEGATIVE NEGATIVE Urine Ketones 1+ H NEGATIVE Urine Nitrite NEGATIVE NEGATIVE Urine Bilirubin NEGATIVE NEGATIVE Urine Urobilinogen 1.0 < = 1.0 MG/DL Urine Leukocyte Esterase NEGATIVE NEGATIVE Urine RBC (Auto) 1+ H NEGATIVE Urine RBC 10-25 H /HPF Urine WBC RARE /HPF Urine Crystals PRESENT H /LPF Urine Calcium Oxalate Crystals MODERATE H /LPF Urine Bacteria NEGATIVE /HPF Urine Casts NONE /LPF Urine Mucus NEGATIVE /LPF Urine Culture Indicated NO My Orders Orders - CAM CROSS DO Ct Head Wo (11/03/22 09:20) Ua Culture If Indicated (11/03/22 09:20) Straight Cath For Spec.-Adult (11/03/22 10:43) Lidocaine 2% (Urojet) (Xylocaine Urojet) (11/03/22 10:45) Medications Given in ED Current Medications Medications Dose Ordered Sig/Geoffrey Route Start Time Stop Time Status Last Admin Dose Admin Lidocaine HCl 10 ml ONCE ONCE TOP 11/03/22 10:45 11/03/22 10:46 DC 11/03/22 10:53 10 ML Departure Communication (Admissions) Patient is hemodynamically stable. No indication for overt injury on exam. X- rays and CT scans negative. UA obtained to ensure that there is no infectious cause of the intermittent fevers that he been having at the nursing facility however he does not have a fever here is completely normal vital signs. He is discharged back to the nursing facility in stable condition. Impression Primary Impression: Fall Qualified Codes: W19.XXXA - Unspecified fall, initial encounter Additional Impression: Closed head injury Qualified Codes: S09.90XA - Unspecified injury of head, initial encounter Disposition: 01 HOME, SELF-CARE Condition: Stable Departure-Patient Inst. Referrals: NO,LOCAL PHYSICIAN (PCP/Family) Primary Care Physician Patient Instructions: Preventing Falls ED Add. Discharge Instructions: X-rays are negative. CT scan is normal. Patient is normal mental baseline. No indication of emergent medical condition. Follow-up with primary Dr. Ivan reese. Return to the emergency department for any severe concerns. All discharge instructions reviewed with patient and/or family. Voiced understanding. CAM CROSS DO Nov 03, 2022 09:24
--- NOTE | 2022-11-03 10:33 | Diagnostic Imaging Report ---
EXAMINATION: CT head without contrast. TECHNIQUE: Multiple contiguous axial images were obtained through the brain without the use of intravenous contrast. All CT scans use one or more of the following dose optimizing techniques: automated exposure control, MA and/or KvP adjustment based on patient size and exam type or iterative reconstruction. HISTORY: Fall. Head injury. COMPARISON: 09/05/2022. FINDINGS: No large acute territorial ischemia, mass, or hemorrhage. No midline shift or mass effect. Decreased attenuation is seen in the periventricular and subcortical white matter. The ventricles and cortical sulci are prominent. The basilar cisterns are patent and unremarkable. The orbits are normal. Paranasal sinuses are normal. Mastoid air cells are clear. No soft tissue abnormality is seen. No osseus lesions or fractures are seen. IMPRESSION: 1. No large acute territorial ischemia, mass, or hemorrhage. 2. Chronic microvascular disease. 3. Generalized parenchymal volume loss. Dictated by: Dictated on workstation # [id number]
[2022-11-03] MEDS ORDERED: LIDOCAINE UROJET 2% GEL 10 ML PKG TOP ONE (10:45)
[2022-11-03 11:14] LABS: BILIRUBIN,URINE NEGATIVE (NEGATIVE); CLARITY,URINE CLEAR; COLOR,URINE YELLOW; GLUCOSE, URINE (UA) NEGATIVE (NEGATIVE); KETONES,URINE 1+ (NEGATIVE); LEUKOCYTE ESTERASE ,URINE NEGATIVE (NEGATIVE); NITRITE,URINE NEGATIVE (NEGATIVE); PH,URINE 6.5 (5-9); PROTEIN,URINE NEGATIVE (NEGATIVE)
[2022-11-03 11:33] LABS: BACTERIA,URINE NEGATIVE /HPF; CALCIUM OXALATE CRYSTALS,UR MODERATE /LPF; WBC,URINE RARE /HPF
[2022-11-03 12:33] VITALS: BP 121/78
== END 2022-11-03 12:33 | disposition home or self-care (01) ==
LOC: EDUNIT# 09:05 → ER 09:07
DX: S09.90XA Unspecified injury of head, initial encounter (principal); S00.03XA Contusion of scalp, initial encounter; Z87.891 Personal history of nicotine dependence; Z28.310 Unvaccinated for COVID-19; W19.XXXA Unspecified fall, initial encounter
CPT/HCPCS: 51701; 70450; 81000

== ENCOUNTER → 2022-12-04 | Outpatient (CLI) | payer MEDICARE ==
[~2022-12-04] MED LIST changes: +ATOR10TA66 PO; +CEPH500T PO; +OSEL30CA PO
== END ==
LOC: WOUNDCARE 09:12
PROVIDERS: ATTEND Family Medicine
DX: I96 Gangrene, not elsewhere classified (principal); L89.623 Pressure ulcer of left heel, stage 3; R64 Cachexia; G20 Parkinson's disease; F02.C0 Dementia in other diseases classified elsewhere, severe, without behavioral disturbance, psychotic disturbance, mood disturbance, and anxiety; M62.81 Muscle weakness (generalized); R29.6 Repeated falls
CPT/HCPCS: 11042; A6197; A6212; G0463

== ENCOUNTER → 2022-12-11 | Outpatient (CLI) | payer MEDICARE | LOC: WOUNDCARE 08:50 | PROVIDERS: ATTEND Family Medicine | DX: G20 Parkinson's disease (principal); I96 Gangrene, not elsewhere classified; F02.C0 Dementia in other diseases classified elsewhere, severe, without behavioral disturbance, psychotic disturbance, mood disturbance, and anxiety; I95.2 Hypotension due to drugs; M62.81 Muscle weakness (generalized) | CPT/HCPCS: A6212; G0463; 99212 ==

== ENCOUNTER → 2022-12-29 | Outpatient (CLI) | payer MEDICARE ==
--- NOTE | 2022-12-29 12:37 | Diagnostic Imaging Report ---
INDICATION: Dysphagia. TECHNIQUE: The procedure was performed in conjunction with Speech Pathology. Video fluoroscopy was performed during the swallowing of barium in multiple consistencies. A total of 114 seconds of fluoroscopic time was utilized. FINDINGS: The patient ingested thin as well as applesauce and semi-solid consistencies. Early spillover was noted with all consistencies. There was laryngeal penetration during the swallowing of thin barium. No aspiration was observed. There was spillover to the level of the piriform sinuses. There was also a moderate amount of vallecular residue noted with all consistencies. There was normal epiglottic tilt and laryngeal elevation. IMPRESSION: Abnormal modified barium swallow demonstrating a moderate amount of early spillover and vallecular residue. There was laryngeal penetration with thin liquids. No aspiration was observed. Dictated by: Dictated on workstation # [id number]
== END ==
LOC: RAD 09:11
PROVIDERS: ATTEND Nurse Practitioner Family
DX: R13.12 Dysphagia, oropharyngeal phase (principal)
CPT/HCPCS: 74230

== ENCOUNTER 2023-01-04 15:13 | Observation (INO) | payer MEDICARE ==
[~2023-01-04] VITALS: Ht 177 cm; Wt 48.0 kg
[2023-01-04 15:51] LABS: BASOPHILS % (AUTO) 0 % (0-10); EOSINOPHILS # (AUTO) 0.1 10^3/uL (0.0-0.3); EOSINOPHILS % (AUTO) 2 % (0-10); HEMATOCRIT 34 % (40-54); HEMOGLOBIN 11.4 g/dL (13.3-17.7); LYMPHOCYTES # (AUTO) 1.2 X 10^3 (1.0-4.0); LYMPHOCYTES % (AUTO) 15 % (12-44); MEAN CORPUSCULAR HEMOGLOBIN 32 pg (25-34); MEAN CORPUSCULAR HGB CONC 34 g/dL (32-36); MEAN CORPUSCULAR VOLUME 95 fL (80-99); MEAN PLATELET VOLUME 10.6 fL (9.0-12.2); MONOCYTES # (AUTO) 0.6 X 10^3 (0.0-1.0); MONOCYTES % (AUTO) 7 % (0-12); NEUTROPHILS # (AUTO) 6.1 X 10^3 (1.8-7.8); NEUTROPHILS % (AUTO) 76 % (42-75); PLATELET COUNT 212 10^3/uL (130-400)
[2023-01-04 15:54] LABS: ALBUMIN 3.5 GM/DL (3.2-4.5); CHLORIDE 101 MMOL/L (98-107); POTASSIUM 4.2 MMOL/L (3.6-5.0); SODIUM 137 MMOL/L (135-145)
[2023-01-04 15:55] LABS: CALCIUM 8.7 MG/DL (8.5-10.1)
[2023-01-04 15:57] LABS: GLUCOSE 96 MG/DL (70-105); TOTAL PROTEIN 5.9 GM/DL (6.4-8.2)
[2023-01-04 15:58] LABS: BILIRUBIN,TOTAL 0.4 MG/DL (0.1-1.0); CARBON DIOXIDE 27 MMOL/L (21-32)
[2023-01-04 16:00] LABS: ALKALINE PHOSPHATASE 43 U/L (40-136); CREATININE SERUM 0.81 MG/DL (0.60-1.30); GFR ESTIMATED 94
[2023-01-04 16:01] LABS: BUN/CREATININE RATIO 27
[2023-01-04 16:03] LABS: ALANINE AMINOTRANSFERASE < 6 U/L (0-55)
--- NOTE | 2023-01-04 16:06 | Diagnostic Imaging Report ---
INDICATION: Hypertension. AP view of chest is obtained with comparison made to study of 11/07/2022. FINDINGS: Heart size and pulmonary vascularity are within normal limits, and the lungs are clear, bilaterally. IMPRESSION: Unremarkable chest. Dictated by: Dictated on workstation # [id number]
[2023-01-04 16:22] LABS: INR 1.2 (0.8-1.4); PROTHROMBIN TIME PATIENT 15.3 SEC (12.2-14.7)
[2023-01-04 16:24] LABS: FREE T4 (FREE THYROXINE) 1.09 NG/DL (0.70-1.48)
--- NOTE | 2023-01-04 16:25 | ED General ---
General Chief Complaint: Altered Mental Status Stated Complaint: AMS Nursing Triage Note: PT TO ED BY EMS FROM [facility] WITH C/O AMS AND HYPOTENSION. LKW 1340, STAFF FOUND PT TO BE LESS RESPONSIVE AT 1415. EMS REPORTS PT ASKED FOR HIS HAT BEFORE LEAVING FACILITY AND WOULD ANSWER SOME BASIC QUESTIONS. PT HYPOTENSIVE AT 65/41 EN ROUTE. PT HAS DEMENTIA, BASELINE MENTATION UNKNOWN. PT ABLE TO STATE NAME AND THAT HE IS IN [place]. STATES HE IS 89. PT IS LETHARGIC, DENIES PAIN, REPORTS HE IS TIRED. Source of Information: Patient, EMS, Family, Group Home Records Exam Limitations: No Limitations History of Present Illness Date Seen by Provider: Jan 04, 2023 Time Seen by Provider: 15:17 Initial Comments This 72-year-old gentleman with advanced Parkinson's disease presents from [facility] with hypotension and decreased alertness. Patient was near baseline earlier in the day and was able to eat breakfast and lunch. He took a nap and was then found to be hypotensive with decreased alertness after waking from his nap. EMS found blood pressure as low as 65/41. He is afebrile and there are no reports of acute infectious illness symptoms such as fever, cough, vomiting, but etc. Patient is responsive and does answer questions appropriately. He does seem somnolent and weak. Historians are patient, EMS, group home record, and his siblings. Family reports he has had significant decline from his Parkinson's over the past several months. He reportedly has lost a significant amount of weight over the past year. On review of his medication filling record, it is noted that he recently started Remeron on December 29. There have reportedly been no other changes in his health care in recent days. Allergies and Home Medications Allergies Coded Allergies: No Known Drug Allergies (Unverified , 11/03/22) Patient Home Medication List Home Medication List Reviewed: Yes Atorvastatin Calcium (Atorvastatin Calcium) 10 Mg Tablet, 10 MG PO HS, (R eported) Entered as Reported by: LÓPEZ LANDRY on 11/08/22 1256 Carbidopa/Levodopa (Carbidopa-Levo ER 50-200 Tab) 50 Mg-200 Mg Tablet.er, 1 EACH PO 0900,1300,1700,2100, (Reported) Entered as Reported by: LÓPEZ LANDRY on 09/05/22 1401 Cephalexin (Cephalexin) 500 Mg Tablet, 500 MG PO BID Prescribed by: ERLINDA NOVA on 11/09/22 1330 Hydrochlorothiazide (Hydrochlorothiazide) 25 Mg Tablet, 25 MG PO DAILY, (Reported) Entered as Reported by: LÓPEZ LANDRY on 09/05/221400 Levothyroxine Sodium (Levothyroxine Sodium) 75 Mcg Tablet, 75 MCG PO DAILY, (Reported) Entered as Reported by: LÓPEZ LANDRY on 09/05/221400 Lisinopril (Lisinopril) 40 Mg Tablet, 40 MG PO DAILY, (Reported) Entered as Reported by: LÓPEZ LANDRY on 09/05/221400 Nifedipine (Nifedipine ER) 60 Mg Tablet.er, 120 MG PO DAILY, (Reported) Entered as Reported by: LÓPEZ LANDRY on 09/05/221400 Oseltamivir Phosphate (Tamiflu) 30 Mg Capsule, 30 MG PO Q12H Prescribed by: ERLINDA NOVA on 11/09/22 133 Polyethylene Glycol 3350 (Miralax) 17 Gram Powd.pack, 17 GM PO DAILY PRN for CONSTIPATION-2ND LINE, (Reported) Entered as Reported by: LÓPEZ LANDRY on 09/05/221400 Psyllium Husk/Aspartame (Metamucil Fiber Singles Packet) 3.4 Gram Powd.pack, 3.4 GM PO DAILY PRN for CONSTIPATION, (Reported) Entered as Reported by: LPÓEZ LANDRY on 09/05/221400 Risperidone (Risperidone) 0.5 Mg Tablet, 0.5 MG PO 0900,1700, (Reported) Entered as Reported by: LÓPEZ LANDRY on 09/05/221400 Review of Systems Review of Systems Constitutional: see HPI EENTM: no symptoms reported Respiratory: no symptoms reported Cardiovascular: see HPI Gastrointestinal: no symptoms reported Genitourinary: no symptoms reported Musculoskeletal: no symptoms reported Skin: no symptoms reported Psychiatric/Neurological: See HPI Hematologic/Lymphatic: No Symptoms Reported Immunological/Allergic: no symptoms reported Past Zftyael-Fsfsba-Xqskvf Hx Patient Social History Pt feels they are or have been: Unable to obtain Immunizations Up To Date First/Initial COVID19 Vaccinat: no record of vac Second COVID19 Vaccination [facility]: no record of vac Third COVID19 Vaccination Date: no record of vac Seasonal Allergies Seasonal Allergies: Yes Past Medical History Surgery/Hospitalization HX: HTN, DEMENTIA, HYPOTHYROIDISM, HYPERLIPIDEMA, PARKINSONS Surgeries: Yes (colonoscopy) Tonsillectomy Respiratory: No Cardiac: Yes High Cholesterol, Hypertension Neurological: Yes Parkinson's Disease (Advanced) Genitourinary: No Gastrointestinal: Yes (found on previous colonoscopy report) Diverticulosis, Polyps Musculoskeletal: No Endocrine: Yes Hypothyroidsim HEENT: No Loss of Vision: Denies Hearing Impairment: Denies Cancer: No Psychosocial: No (sister reports pt has had visual hallucinations for about 6 months) Integumentary: No Blood Disorders: No Family Medical History Heart Disease, Diabetes, Other Conditions/Hx SOCIAL HISTORY: -SMOKED 1 PPD X 5 YEARS, QUIT 1988 -DENIES HISTORY OF DRUG USE -HISTORY OF ETOH USE--UNKNOWN AMOUNT OR HOW OFTEN COLONOSCOPY 03/19/[address] STREETER: DONE FOR HISTORY OF POLYPS NO POLYPS OR NEOPLASMS MILD DIVERTICULAR DISEASE. Physical Exam-Suspected Sepsis Physical Exam Vital Signs Vital Signs - First Documented 01/04/23 15:15 Temp 36.6 Pulse 63 Resp 19 B/P (MAP) 81/49 (60) Pulse Ox 100 O2 Delivery Room Air Capillary Refill : Less Than 3 Seconds Blood Pressure Mean: 60 Height, Weight, BMI Height: 5'7.00" Weight: 156lbs. 0.0oz. 70.478503se; 15.00 BMI Method: General Appearance: No Apparent Distress, Thin, Other (Appears somewhat lethargic) HEENT: PERRL/EOMI, Other (Oropharynx somewhat dry) Neck: Normal Inspection; No JVD Respiratory: Lungs Clear, Normal Breath Sounds, No Accessory Muscle Use Cardiovascular: Regular Rate, Rhythm, No Edema, No Murmur Gastrointestinal: Non Tender, Soft; No Distended Extremity: Normal Inspection, No Pedal Edema Neurologic/Psychiatric: Alert, Other (Oriented to person and place. Generalized weakness without focal deficit. Dementia at baseline secondary to Parkinson's. Somnolent) Skin: normal color, warm/dry Focused Exam Lactate Level 01/04/23 15:30: Lactic Acid Level 2.17*H 01/04/23 18:40: Lactic Acid Level 5.03*H Lactic Acid Level Procedures/Interventions Suture Size: 5-0 Progress/Results/Core Measures Suspected Sepsis SIRS Temperature: Pulse: 63 Respiratory Rate: 19 Laboratory Tests 01/04/23 15:30: White Blood Count 8.0 Blood Pressure 81 /49 Mean: 60 01/04/23 15:30: Lactic Acid Level 2.17*H 01/04/23 18:40: Lactic Acid Level 5.03*H Laboratory Tests 01/04/23 15:30: Creatinine 0.81, INR Comment 1.2, Platelet Count 212, Total Bilirubin 0.4 Results/Orders Lab Results Laboratory Tests Test 01/04/23 15:30 01/04/23 18:40 Range/Units White Blood Count 8.0 4.3-11.0 10^3/uL Red Blood Count 3.59 L 4.30-5.52 10^6/uL Hemoglobin 11.4 L 13.3-17.7 g/dL Hematocrit 34 L 40-54 % Mean Corpuscular Volume 95 80-99 fL Mean Corpuscular Hemoglobin 32 25-34 pg Mean Corpuscular Hemoglobin Concent 34 32-36 g/dL Red Cell Distribution Width 13.8 10.0-14.5 % Platelet Count 212 130-400 10^3/uL Mean Platelet Volume 10.6 9.0-12.2 fL Immature Granulocyte % (Auto) 0 % Neutrophils (%) (Auto) 76 H 42-75 % Lymphocytes (%) (Auto) 15 12-44 % Monocytes (%) (Auto) 7 0-12 % Eosinophils (%) (Auto) 2 0-10 % Basophils (%) (Auto) 0 0-10 % Neutrophils # (Auto) 6.1 1.8-7.8 X 10^3 Lymphocytes # (Auto) 1.2 1.0-4.0 X 10^3 Monocytes # (Auto) 0.6 0.0-1.0 X 10^3 Eosinophils # (Auto) 0.1 0.0-0.3 10^3/uL Basophils # (Auto) 0.0 0.0-0.1 10^3/uL Immature Granulocyte # (Auto) 0.0 0.0-0.1 10^3/uL Prothrombin Time 15.3 H 12.2-14.7 SEC INR Comment 1.2 0.8-1.4 Activated Partial Thromboplast Time 35 24-35 SEC Sodium Level 137 135-145 MMOL/L Potassium Level 4.2 3.6-5.0 MMOL/L Chloride Level 101 98-107 MMOL/L Carbon Dioxide Level 27 21-32 MMOL/L Anion Gap 9 5-14 MMOL/L Blood Urea Nitrogen 22 H 7-18 MG/DL Creatinine 0.81 0.60-1.30 MG/DL Estimat Glomerular Filtration Rate 94 BUN/Creatinine Ratio 27 Glucose Level 96 70-105 MG/DL Lactic Acid Level 2.17 *H 5.03 *H 0.50-2.00 MMOL/L Calcium Level 8.7 8.5-10.1 MG/DL Corrected Calcium 9.1 8.5-10.1 MG/DL Total Bilirubin 0.4 0.1-1.0 MG/DL Aspartate Amino Transf (AST/SGOT) 7 5-34 U/L Alanine Aminotransferase (ALT/SGPT) < 6 0-55 U/L Alkaline Phosphatase 43 40-136 U/L Total Creatine Kinase 52 30-200 U/L C-Reactive Protein High Sensitivity 2.44 H 0.00-0.50 MG/DL Total Protein 5.9 L 6.4-8.2 GM/DL Albumin 3.5 3.2-4.5 GM/DL Thyroid Stimulating Hormone (TSH) 2.63 0.35-4.94 UIU/ML Free Thyroxine 1.09 0.70-1.48 NG/DL My Orders Orders - OLIVIA CONNER MD Cbc With Automated Diff (01/04/23 15:27) Comprehensive Metabolic Panel (01/04/23 15:27) Blood Culture (01/04/23 15:27) Protime With Inr (01/04/23 15:27) Partial Thromboplastin Time (01/04/23 15:27) Chest 1 View, Ap/Pa Only (01/04/23 15:27) Lactic Acid Analyzer (01/04/23 15:27) Thyroid Stimulating Hormone (01/04/23 15:27) Free T4 (Free Thyroxine) (01/04/23 15:27) Hs C Reactive Protein (01/04/23 15:27) Salguero Cath (01/04/23 15:27) Lactated Ringers (Lr 1000 Ml Iv Solution (01/04/23 16:45) Bladder Scan (01/04/23 17:08) Ekg Tracing (01/04/23 17:48) Creatine Kinase (01/04/23 17:49) Medications Given in ED Vital Signs/I&O 01/04/23 01/04/23 19:38 22:54 Temp 36.8 Pulse 120 Resp 20 B/P (MAP) 70/40 (50) Pulse Ox 100 94 O2 Delivery Room Air Room Air 01/05/23 00:00 Intake Total 150 ml Balance 150 ml Capillary Refill : Less Than 3 Seconds Blood Pressure Mean: 60 Progress Note : Progress Note Blood pressure was resuscitated with 2 L of IV fluid. Patient's labs did not suggest sepsis as a source of his hypotension. Labs also did not suggest acute kidney injury or dehydration as a source. I suspect multifactorial etiology for his hypotension which may include adverse effect from Remeron, Parkinson's disease, etc. I discussed patient's situation with family. He is to be a DNR. Hospice has been considered recently but they are unsure of when to initiate that process. For the time being, they would like to admit to the hospital and monitor him overnight. Depending on how he does overnight, they may request a referral to hospice. ECG Initial ECG Impression Date: Jan 04, 2023 Initial ECG Impression Time: 17:49 Initial ECG Rate: 97 Initial ECG Rhythm: Normal Sinus Initial ECG Intervals: Normal Initial ECG Impression: Normal Comment Normal sinus rhythm with no ST elevation or depression. CO interval short at 43 ms. No other abnormal intervals or axis deviation. Diagnostic Imaging Diagonstic Imaging: Xray Plain Films/CT/US/NM/MRI: chest Comments NAME: SANDIE YANG [facility] REC#: [id number] PT STATUS: REG ER : 1950 PHYSICIAN: OLIVIA CONNER MD ADMIT DATE: 01/04/23/ER Signed Date of Exam:01/04/23 CHEST 1 VIEW, AP/PA ONLY INDICATION: Hypertension. AP view of chest is obtained with comparison made to study of 11/07/2022. FINDINGS: Heart size and pulmonary vascularity are within normal limits, and the lungs are clear, bilaterally. IMPRESSION: Unremarkable chest. Dictated by: Dictated on workstation # [id number] Dict: 01/04/23 1604 Trans: 01/04/23 1622 [id number] Interpreted by: HOWARD SANTANA MD Electronically signed by: HOWARD SANTANA MD 01/04/23 1622 Departure Communication (Admissions) Time/Spoke to Admitting Phy: 18:20 Dr. Nova Impression Primary Impression: Hypotension Qualified Codes: I95.9 - Hypotension, unspecified Additional Impressions: Altered mental status Qualified Codes: R41.82 - Altered mental status, unspecified Parkinsons disease Disposition: ADMITTED INPATIENT Condition: Improved Admissions Decision to Admit Reason: Admit from ER (General) Decision to Admit/Date: Jan 04, 2023 Time/Decision to Admit Time: 18:20 Departure-Patient Inst. Referrals: NO,LOCAL PHYSICIAN (PCP/Family) Primary Care Physician OLIVIA CONNER MD Jan 04, 2023 16:25
[2023-01-04] MEDS ORDERED: LACTATED RINGERS 1,000 ML IV ONE (16:45)
[2023-01-04] MEDS ORDERED: LACTATED RINGERS 1,000 ML IV SCH (19:15)
[2023-01-04] MEDS ORDERED: NS IV 1000 ML 1,000 ML ONE (19:33)
[2023-01-04 19:38] VITALS: BP 70/40
[2023-01-04] MEDS ORDERED: LORazepam INJ 2 MG/ML (ATIVAN) VIAL IVP PRN (20:00)
[2023-01-04] MEDS ORDERED: GLYCOPYRROLATE 0.2 MG/ML (ROBINUL) 2 ML VIAL IV PRN (20:00)
[2023-01-04] MEDS ORDERED: SINEMET CR 50/200 (CARBIDOPA/LEVODOPA SA) TAB PO SCH (21:00)
[2023-01-04] MEDS ORDERED: morphine INJ 4 MG/ML 1 ML (VIAL/SYRINGE) IV PRN (21:45)
[2023-01-04] MEDS ORDERED: ACETAMINOPHEN 325 MG TABLET PO PRN (23:30)
[2023-01-05] MEDS ORDERED: LEVOTHYROXINE 75 MCG (LEVOTHROID) TABLET PO SCH (06:30)
[2023-01-05] MEDS ORDERED: MIRT-68 PO (11:40)
[2023-01-05] MEDS ORDERED: ACET325T38 PO (11:40)
[2023-01-05] MEDS ORDERED: MAGN400O7 PO (11:40)
[2023-01-05] MEDS ORDERED: NA P133E22 RC (11:40)
--- NOTE | 2023-01-05 12:27 | History & Physical-Hospitalist ---
History of Present Illness HPI/Chief Complaint Pt is a 72yoCM with a PMH of parkinson's dementai who presented to the ER due to hypotension. Reportedly he was in his normal state of health until lunch time yesterday and then was found to be less responsive than normal. They checked his vitals and found him to be very hypotensive. He was given 2 liters of fluids in the ER and BP improved and was admitted for observation given concern that this was iatrogenic from remeron. Despite fluids resuscitation he developed refractory hypotension overnight and family elected to transition him to comfort measures only. This morning his sister is at bedside. Patient is unable to provide any history. Source: patient Date Seen 01/05/23 Time Seen by a Provider: 08:30 Attending Physician No,Local Physician PCP Admitting Physician: Jillian Nguyen MD Attending Physician: Jillian Nguyen MD Referring Physician Date of Admission Jan 04, 2023 at 6:20 pm Home Medications & Allergies Home Medications Reviewed patient Home Medication Reconciliation performed by pharmacy medication reconciliations water pollution control technician and/or nursing. Patients Allergies have been reviewed. Allergies Allergies Coded Allergies No Known Drug Allergies ([id number]/9/22) Past Liynxwe-Rpsggt-Wntgry Hx Patient Social History Smoking Status: Former Smoker Use of E-Cig and/or Vaping dev: No Substance use?: No Alcohol Use?: No Pt feels they are or have been: No Immunizations Up To Date Date of Influenza Vaccine: Aug 30, 2022 First/Initial COVID19 Vaccinat: no record of vac Second COVID19 Vaccination [facility]: no record of vac Tetanus Booster (TDap): Less Than 5 Years Hepatitis A: No Hepatitis B: No Seasonal Allergies Seasonal Allergies: Yes Current Status Advance Directives: Yes Advance Directive Location: Copy placed in chart Communicates: Unable To Communicate, Verbally Primary Language: Malay Is interpretation needed?: No Sensory deficits: Speech impairment Past Medical History Surgeries: Tonsillectomy High Cholesterol, Hypertension Parkinson's Disease (Advanced) Diverticulosis, Polyps Hypothyroidsim Loss of Vision: Denies Hearing Impairment: Denies Blood Disorders: No Family Medical History Heart Disease, Diabetes, Other Conditions/Hx SOCIAL HISTORY: -SMOKED 1 PPD X 5 YEARS, QUIT 1988 -DENIES HISTORY OF DRUG USE -HISTORY OF ETOH USE--UNKNOWN AMOUNT OR HOW OFTEN COLONOSCOPY 03/19/[address] STREETER: DONE FOR HISTORY OF POLYPS NO POLYPS OR NEOPLASMS MILD DIVERTICULAR DISEASE. Review of Systems Constitutional: see HPI Physical Exam Physical Exam Vital Signs Vital Signs - First Documented 01/04/23 15:15 Temp 36.6 Pulse 63 Resp 19 B/P (MAP) 81/49 (60) Pulse Ox 100 O2 Delivery Room Air Capillary Refill : Less Than 3 Seconds Height, Weight, BMI Height: 5'7.00" Weight: 156lbs. 0.0oz. [id number]; 15.32 BMI Method: General Appearance: No Apparent Distress, Thin HEENT: Moist Mucous Membranes Respiratory: Lungs Clear, No Respiratory Distress Cardiovascular: No Murmur Gastrointestinal: Normal Bowel Sounds, Soft Neurologic/Psychiatric: Other (does not respond, tremors noted) Results Results/Procedures Labs Laboratory Tests 01/04/23 15:30 Patient resulted labs reviewed. Assessment/Plan Admission Diagnosis Hypotension Admission Status: Observation Assessment and Plan Hypotension Parkinson's disease Need for comfort care Dementia Psychosis HTN HLD Hypothyroidism Profound hypotension Hold remeron and antihypertensives Discussions had with family and they are electing comfort care Will refer to [facility] per their choice and hopefully DC back to [facility] tomorrow with hospice if stable Diagnosis/Problems Diagnosis/Problems (1) Need for comfort care JILLIAN NGUYEN MD Jan 05, 2023 12:27
--- NOTE | 2023-01-06 10:15 | Discharge Summary ---
Diagnosis/Chief Complaint Date of Admission Jan 04, 2023 at 18:20 Date of Discharge Discharge Date: Jan 06, 2023 Admission Diagnosis Hypotension Primary Care No,Local Physician Discharge Diagnosis (1) Need for comfort care Discharge Summary Discharge Physical Exam Allergies: Coded Allergies: No Known Drug Allergies (Unverified , 11/03/22) Vitals & I&Os Vital Signs Date Time Temp Pulse Resp B/P (MAP) Pulse Ox O2 Delivery O2 Flow Rate FiO2 01/06/23 08:00 94 Room Air 01/04/23 19:38 36.8 120 20 70/40 (50) General Appearance: No Apparent Distress, Chronically ill, Cachetic Neurologic/Psychiatric: Alert, Disoriented Hospital Course Patient was admitted to the hospital secondary to hypotension. He does have known Parkinson's dementia and has had multiple admissions over the past few months. Family has been considering pursuing hospice as an outpatient. We admitted originally for observation and IV fluids due to his hypotension presumably from Remeron. He continued to have profound hypotension and family elected to pursue comfort measures only instead of escalating care to the ICU and starting pressors. Palliative care was consulted and they elected to enroll with [facility] hospice. [facility] was [facility] to [facility] with the help of hospice. Labs (last 24 hrs) Microbiology 01/04/23 Blood Culture - Preliminary, Resulted No growth Patient resulted labs reviewed. Discussion & Recommendations Discharge Planning: >30 minutes discharge planning Discharge Home Medications: Active Scripts Active Reported Fleet Enema (Na Phos,M-B/Na Phos,Di-Ba) 19 Gram-7 Gram/118 Ml Enema 133 Ml RC DAILY PRN Milk of Magnesia (Magnesium Hydroxide) 400 Mg/5 Ml Oral.susp 30 Ml PO DAILY PRN Tylenol (Acetaminophen) 325 Mg Tablet 650 Mg PO TID Mirtazapine 15 Mg Tablet 7.5 Mg PO HS TAKES OF A 15MG Atorvastatin Calcium 10 Mg Tablet 10 Mg PO HS Risperidone 0.5 Mg Tablet 0.5 Mg PO 0900,1700 Metamucil Fiber Singles Packet (Psyllium Husk/Aspartame) 3.4 Gram Powd.pack 3.4 Gm PO DAILY PRN Miralax (Polyethylene Glycol 3350) 17 Gram Powd.pack 17 Gm PO DAILY PRN Nifedipine ER (Nifedipine) 60 Mg Tablet.er 120 Mg PO DAILY TAKES 2 (60MG) TABS Lisinopril 40 Mg Tablet 40 Mg PO DAILY HOLD FOR SBP <100 OR PULSE <60 Levothyroxine Sodium 75 Mcg Tablet 75 Mcg PO DAILY Hydrochlorothiazide 25 Mg Tablet 25 Mg PO DAILY Carbidopa-Levo ER 50-200 Tab (Carbidopa/Levodopa) 50 Mg-200 Mg Tablet.er 1 Each PO 0900,1300,1700,2100 Instructions to patient/family Please see electronic discharge instructions given to patient. ERLINDA NGUYEN MD Jan 06, 2023 10:15
== END 2023-01-06 10:04 | disposition hospice, home (50) ==
LOC: EDUNIT# 15:13 → ER 15:13 → 4TH 18:20 → UNDOADMOB 18:20 → 4TH 19:05 → UNDODISOB 01-06 10:04
PROVIDERS: ADMIT Family Medicine; ATTEND Family Medicine
DX: I95.9 Hypotension, unspecified (principal); G20 Parkinson's disease; I10 Essential (primary) hypertension; E78.5 Hyperlipidemia, unspecified; E03.9 Hypothyroidism, unspecified; F29 Unspecified psychosis not due to a substance or known physiological condition; F02.80 Dementia in other diseases classified elsewhere, unspecified severity, without behavioral disturbance, psychotic disturbance, mood disturbance, and anxiety; Z87.891 Personal history of nicotine dependence; Z79.890 Hormone replacement therapy; Z79.899 Other long term (current) drug therapy
CPT/HCPCS: 51702; 71045; 80053; 82550; 83605; 84439; 84443; 85025; 85610; 85730; 86141; 87040; 93005; 96360; 96375; 99284; G0378; 36415